=== PATIENT | male | born 2000 | race Two or more races ===

== ENCOUNTER 2020-05-11 04:33 | Emergency (ER) | payer MEDICAID, SELFPAY ==
[2020-05-11 04:42] VITALS: BP 119/70; PULSE 71; RESP 12; TEMP 36.8; O2SAT 99; BMI 23.7
[2020-05-11 04:49] VITALS: BP 119/70; PULSE 75; RESP 16; TEMP 36.8; O2SAT 99
--- NOTE | 2020-05-11 04:57 | ED_ITS ---
HPI - General Adult General Chief complaint: Dyspnea Stated complaint: SOB Time Seen by Provider: 05/11/20 04:54 Source: patient Mode of arrival: ambulatory History of Present Illness HPI narrative: 19-year-old male. Chief complaint of sore throat x2 days. Patient states difficult to swallow. Denies neck stiffness. Denies drooling. Also states tonight started with generalized abdominal cramping and mild headache. No fevers no chills. No cough at this point patient denies shortness of breath. Patient states has been around people who have been COVID positive and is having slight fatigue Onset (ago): day(s) Severity: moderate Pain Consistency: constant Related Data Home Medications Medication Instructions Recorded Confirmed No Known Home Meds 05/11/20 05/11/20 Allergies Allergy/AdvReac Type Severity Reaction Status Date / Time No Known Allergies Allergy Verified 05/11/20 04:41 [No Known Allergies*] Review of Systems Review of Systems: Constitutional : No Weight loss, No Fever, No Chills, No Night Sweats, positive Fatigue, No Malaise ENT/Mouth : No Hearing loss, No Ear Pain, No Nasal Congestion, No Sinus Pain, No Hoarseness, positive sore throat, No Rhinorrhea, No Swallowing Difficulty Eyes: No Eye Pain, No Swelling, No Redness, No Foreign Body, No Discharge, No Vision Changes Cardiovascular : No Chest Pain, No SOB, No Dyspnea on Exertion, No Orthopnea, No Edema, No Palpitations Respiratory : No Cough, No Sputum, No Wheezing, No Smoke Exposure, No Dyspnea Gastrointestinal : No Nausea, No Vomiting, No Diarrhea, No Constipation, positive abdominal Pain, No Hematochezia, No Melena Genitourinary : no irregular bleeding, No Dysuria, No Urinary Frequency, No Hematuria, No Urinary Incontinence, No Urgency, No Flank Pain, No Urinary Flow Changes, No Hesitancy Musculoskeletal : No joint pain, No Myalgias, No Joint Swelling Skin : No Skin Lesions, No rash Neuro : No Weakness, No Numbness, No Paresthesias, No Loss of Consciousness, No Dizziness, No Headache Psych : No Anxiety/Panic, No Depression, No SI/HI/AH/VH, No Social Issues, Heme/Lymph: No Bruising, No Bleeding,No Lymphadenopathy Endocrine : No Polyuria, No Polydipsia, No Temperature Intolerance [facility] Past Medical History Attestation statement: The following information was validated with the patient. Medical History No known health problems Family History Family History (Updated 05/11/20 @ 04:58 by Reynaldo Main DO) Other Family history non-contributory Social History Social History Alcohol intake: former Smoking Status: Current every day smoker Use of substances other than those prescribed or required for medical reasons: No Advance Directives: No Advance Directives Information Provided: No Physical Exam Vital Signs: Vital Signs: Last Vital Signs Temp 98.3 F 05/11/20 04:49 Pulse 75 05/11/20 04:49 Resp 16 05/11/20 04:49 BP 119/70 05/11/20 04:49 Pulse Ox 99 05/11/20 04:49 Body Mass Index 23.7 Vital signs reviewed 99% room air interpreted by ut pulse ox normal Appearance: Alert. Oriented X3. No acute distress. Eyes: Pupils equal, round and reactive to light. ENT: Pharynx erythematous. No discharge. No abscess. No trauma Neck: Normal inspection. Neck supple. No lymph nodes noted. No crepitus CVS: Normal heart rate and rhythm. Pulses normal. Normal S1 and S2 Respiratory: No respiratory distress. Breath sounds normal. No Wheezing. No rales Abdomen: Soft and nontender. No rigidity. No distention. good BS x4 Skin: Skin warm and dry. Normal skin color. Normal skin turgor. Extremities: No lower extremity edema. Neurovascular intact to all extremities. No Lacerations. No Rash Neuro: Oriented X 3. No motor deficit. No sensory deficit. Moving all extermities. No slurred speech. Course Course Course Narrative: Patient declines shortness of breath states having difficulty swelling with throat pain. Patient has been around COVID patient is however will test him and discussed with patient regarding self isolation Medical Decision Making MDM Narrative Medical decision making narrative: To 1-year-old male status post sore throat rapid strep negative generalized weakness normal labs. COVID test pending tolerating PO. No hypoxia no shortness of breath or cough. Discussed with patient will need self-isolation Differential Diagnosis Differential Diagnosis: Retropharyngeal abscess, strep throat, viral illness Lab Data Lab results reviewed: Yes I reviewed the patient's lab results. Result diagrams: 05/11/20 05:07 05/11/20 05:07 Labs: Lab Results 05/11/20 05/11/20 Range/Units 05:07 05:07 WBC 6.1 (4.8-10.8) X10*3/uL RBC 4.86 (4.60-5.80) X10*6/uL Hgb 15.6 (14.0-18.0) g/dl Hct 46.0 (42-52) % MCV 94.7 (80-98) fL MCH 32.1 (27.0-33.0) pg MCHC 33.9 (31.0-36.0) g/dl RDW 12.9 (11.0-16.0) % Plt Count 304 (160-400) X10*3/uL MPV 9.8 (9.4-12.4) fL Immature Gran % (Auto) 0.3 (0.0-0.4) % Neut % (Auto) 44.5 L (45-73) % Lymph % (Auto) 46.4 H (20-40) % Whitley % (Auto) 6.7 (2-11) % Eos % (Auto) 1.3 (0-4) % Baso % (Auto) 0.8 (0-2) % Lymph # (Auto) 2.8 (1.2-4.9) X10*3/uL Whitley # (Auto) 0.4 (0.1-1.2) X10*3/uL Eos # (Auto) 0.1 (0.0-0.4) X10*3/uL Baso # (Auto) 0.1 (0.0-0.2) X10*3/uL Abs Immat Gran (auto) 0.02 (0.00-0.03) X10*3/uL Absolute Neuts (auto) 2.7 (2.0-8.3) X10*3/uL Absolute Nucleated RBC 0.000 (0.0-0.012) X10*3/uL Nucleated RBC % (auto) 0.0 (0.0-0.2) /100WBC Sodium 141 (135-145) mmol/L Potassium 4.2 (3.3-5.1) mmol/l Chloride 104 (96-108) mmol/L Carbon Dioxide 25 (22-29) mmol/L Anion Gap 16 (12-20) BUN 7 L (9-16) mg/dL Creatinine 0.94 (0.5-1.4) mg/dL Estim Creat Clear Calc 140.4 Estimated GFR > 60 Random Glucose 89 (60-115) mg/dL Calcium 9.2 (8.4-10.2) mg/dL Total Bilirubin 0.2 (0.0-1.0) mg/dL Direct Bilirubin < 0.2 (0.0-0.5) mg/dL AST 23 (5-37) U/L ALT 22 (0-40) U/L Alkaline Phosphatase 84 (39-117) U/L Total Protein 7.5 (6.5-8.0) g/dL Albumin 4.7 (3.5-5.0) g/dL Lipase 50 (8-78) U/L Discharge Plan Discharge Clinical Impression: Myalgia, At increased risk of exposure to COVID-19 virus Pharyngitis Qualifiers: Pharyngitis/tonsillitis etiology: unspecified etiology Qualified Code(s): J02.9 - Acute pharyngitis, unspecified Patient Disposition: Home, Self-Care Instructions: Pharyngitis (ED) Additional Instructions: CDC Guidelines for home isolation: Follow these instructions until your Covid results return - Stay away from others - Limit contact with pets and animals: If you must care for a pet, wash your hands before and after interacting with them - Wear a mask if you are sick - Cover your mouth and nose with a tissue when you cough or sneeze. Dispose of tissues in a lined trash can and wash your hands immediately with soap and water for at least 20 seconds. If soap and water are not available, clean hands with alcohol-based hand piped buttonhole machine operator that contains at least 60% alcohol. - Clean your hands often with soap and water for at least 20 seconds - Avoid touching your eyes, nose and mouth with unwashed hands - Do not share dishes, drinking glasses, cups, eating utensils, towels, or bedding with other people in your home. After using these items, wash them thoroughly with soap and water or put in the human insights lead ads marketing. - Clean high-touch surfaces in your isolation area (?sick room? and bathroom) every day; let a caregiver clean and disinfect high-touch surfaces in other areas of the home. Clean the area or item with soap and water or another detergent if it is dirty. Then, use a household disinfectant. Seek medical attention, but call first: - Seek medical care right away if your illness is worsening (for example, if you have difficulty breathing). - Call your doctor before going in: Before going to the doctor?s office or emergency room, call ahead and tell them your symptoms. They will tell you what to do. - If possible, put on a facemask before you enter the building. If you can?t put on a facemask, try to keep a safe distance from other people (at least 6 feet away). This will help protect the people in the office or waiting room. - Follow care instructions from your healthcare provider and local health department: Your local health authorities will give instructions on checking your symptoms and reporting information. Emergency warning signs for COVID-19: - Difficulty breathing or shortness of breath - Persistent pain or pressure in the chest - New confusion or inability to arouse - Bluish lips or face Prescriptions: No Action No Known Home Meds RF: 0 Referrals: Elsa Ulloa MD [Primary Care Provider] - 2 days
[2020-05-11] MEDS: 0.9 % Sodium Chloride 1,000 ML 999 ML IVCONT (05:09)
[2020-05-11] MEDS: Ketorolac Tromethamine 30 MG/ML VIAL IVPUSH (05:13)
[2020-05-11 05:15] LABS: Basophils Absolute Auto 0.1 X10*3/uL (0.0-0.2); Basophils Percent Auto 0.8 % (0-2); Eosinophils Absolute Auto 0.1 X10*3/uL (0.0-0.4); Eosinophils Percent Auto 1.3 % (0-4); Hemoglobin 15.6 g/dl (14.0-18.0); Imm Gran Abs Auto 0.02 X10*3/uL (0.00-0.03); Imm Gran Pct Auto 0.3 % (0.0-0.4); Lymphocytes Absolute Auto 2.8 X10*3/uL (1.2-4.9); Lymphocytes Percent Auto 46.4 % (20-40); MANUAL DIFF FLAG NO; Mean Corpuscular HGB Conc 33.9 g/dl (31.0-36.0); Mean Corpuscular Hemoglobin 32.1 pg (27.0-33.0); Mean Corpuscular Volume 94.7 fL (80-98); Mean Platelet Volume 9.8 fL (9.4-12.4); Monocytes Absolute Auto 0.4 X10*3/uL (0.1-1.2); Monocytes Percent Auto 6.7 % (2-11); Neutrophils Absolute Auto 2.7 X10*3/uL (2.0-8.3); Neutrophils Percent Auto 44.5 % (45-73); Platelet Count 304 X10*3/uL (160-400); Red Blood Count 4.86 X10*6/uL (4.60-5.80); Red Cell Distribution Width 12.9 % (11.0-16.0); White Blood Count 6.1 X10*3/uL (4.8-10.8)
[2020-05-11 05:43] LABS: Alanine Aminotransferase 22 U/L (0-40); Albumin Level 4.7 g/dL (3.5-5.0); Alkaline Phosphatase 84 U/L (39-117); Anion Gap 16 (12-20); Aspartate Amino Transferase 23 U/L (5-37); Bilirubin Direct < 0.2 mg/dL (0.0-0.5); Bilirubin Total 0.2 mg/dL (0.0-1.0); Blood Urea Nitrogen 7 mg/dL (9-16); Calcium 9.2 mg/dL (8.4-10.2); Carbon Dioxide 25 mmol/L (22-29); Chloride 104 mmol/L (96-108); Creatinine Clr Calc Pharmacy 140.4; Estimated Glomerular Filt Rate > 60; Glucose Random 89 mg/dL (60-115); Lipase 50 U/L (8-78); Potassium 4.2 mmol/l (3.3-5.1); Sodium 141 mmol/L (135-145); Total Protein 7.5 g/dL (6.5-8.0)
[2020-05-11 06:00] VITALS: BP 115/68; PULSE 69; RESP 18; TEMP 36.7; O2SAT 97
== END 2020-05-11 07:03 | disposition home or self-care (01) ==
PROVIDERS: Emergency Provider Emergency Medicine; PCP Pediatrics
DX: J02.9 Acute pharyngitis, unspecified (principal); M79.10 Myalgia, unspecified site; R06.00 Dyspnea, unspecified; Z20.828 Contact with and (suspected) exposure to other viral communicable diseases; F17.200 Nicotine dependence, unspecified, uncomplicated; Z71.6 Tobacco abuse counseling; Z79.899 Other long term (current) drug therapy
CPT/HCPCS: 36415; 80048; 80076; 83690; 85025; 87071; 87147; 87880; 96361; 96374; 99284; J1885; U0003

== ENCOUNTER 2020-06-03 20:01 | Inpatient (IN) | payer OTHER, SELFPAY ==
[2020-06-03 20:02] VITALS: BP 152/89; PULSE 84; RESP 18; TEMP 37.2; O2SAT 97; BMI 23.0
--- NOTE | 2020-06-03 21:16 | PC.NURSE ---
PT TO ROOM #22, CHG INTO GOWN AND AWAITING MD'S EVAL. PT C/O NAUSEA, VOMITING, THROWING UP BLOOD AND ABD PAIN. PT ARRIVES ALERT, RESPIRATIONS EASY, N/L. SKIN W/D. PT AWAITING TO BE SEE BY MD. WILL CONTINUE TO MONITOR PT.
--- NOTE | 2020-06-03 21:19 | ED.GENADULT ---
HPI - General Adult General Chief complaint: General Medical Stated complaint: withdraws Time Seen by Provider: 06/03/20 23:15 Source: patient Mode of arrival: ambulatory Limitations: no limitations History of Present Illness HPI narrative: 19-year-old male with no significant past medical history presents with withdrawal symptoms from alcohol. States he has been drinking 2-3 pt of hard liquor every day for the past 2 years since his younger brother . He states that he has been unable to eat or drink, has been vomiting for the past 3 days, is sweating, tremors, and is asking for detox. Onset (ago): year(s) Severity: severe Pain Consistency: constant Relieving factors: none Associated symptoms: diaphoresis, loss of appetite, malaise and nausea/vomiting Related Data Home Medications Medication Instructions Recorded Confirmed No Known Home Meds 05/11/20 05/11/20 Allergies Allergy/AdvReac Type Severity Reaction Status Date / Time No Known Allergies Allergy Verified 05/11/20 04:41 [No Known Allergies*] Review of Systems Review of Systems: Constitutional: No Fever, No Chills, positive diaphoresis, positive tremors ENT/Mouth: No sore throat, No Rhinorrhea Eyes: No Eye Pain, No Swelling, No Redness Cardiovascular: No Chest Pain, No SOB Respiratory: No Cough, No Sputum Gastrointestinal: Positive Nausea, positive Vomiting, No Diarrhea, pulse abdominal Pain Genitourinary: No Dysuria, No Hematuria Musculoskeletal: No joint pain, No Myalgias, No Joint Swelling Skin: No Skin Lesions, No rash Neuro: No Weakness, No Numbness, No Loss of Consciousness, No Dizziness, No Headache Psych: Positive Anxiety, No Depression, No SI/HI/AH/VH Heme/Lymph: No Bruising, No Bleeding,No Lymphadenopathy Endocrine: No Polyuria, No Polydipsia Yes all other systems are reviewed and are negative [facility] Past Medical History Attestation statement: The following information was validated with the patient. Medical History No known health problems Family History Family History Other Family history non-contributory Social History Social History Alcohol intake: former Smoking Status: Current every day smoker Advance Directives: No Advance Directives Information Provided: No Physical Exam Vital Signs: Vital Signs: Last Vital Signs Temp 99.0 F 06/03/20 20:02 Pulse 68 06/04/20 00:00 Resp 18 06/04/20 00:00 BP 145/81 H 06/04/20 00:00 Pulse Ox 99 06/04/20 00:00 Body Mass Index 23.0 Appearance: Alert. Oriented X3. Moderate distress. Tachycardic, tremors, diaphoretic, hypertensive Eyes: Pupils equal, round and reactive to light. ENT: Pharynx normal. Neck: Normal inspection. Neck supple. CVS: Normal heart rate and rhythm. Pulses normal. Respiratory: No respiratory distress. Breath sounds normal. Abdomen: Soft and diffusely tender without rebound, guarding, negative psoas, obturator, Villar's and McBurney's Skin: Skin warm and moderate diaphoresis,. Normal skin color. Normal skin turgor. Extremities: No lower extremity edema. Neuro: No motor deficit. No sensory deficit. Course Course Course Narrative: 19-year-old male with significant EtOH history presents in acute alcohol withdrawal. He states to drink 2-3 pt of hard liquor per day for the past 2 years since his brother . He also reports cocaine and marijuana abuse. He has abdominal pain, nausea, vomiting, is tremors, diaphoretic, hypertensive and tachycardic. Plan of care is to start with phenobarbital protocol, resuscitate with fluids with a banana bag, CBC, Chem 7, and liver enzymes. Magnesium is 1.5, we will resuscitate. Discussion with hospitalist regarding plan of care, we will up admit for acute alcohol withdrawal. Consultations Consultation #1: Anuj Villarreal Time: 11:45 Medical Decision Making Differential Diagnosis Differential Diagnosis: ETOH withdrawal Medical Records Medical records reviewed: Yes I reviewed the patient's medical records. Lab Data Lab results reviewed: Yes I reviewed the patient's lab results. Result diagrams: 06/03/20 21:40 06/03/20 21:40 Labs: Lab Results 06/03/20 06/03/20 06/03/20 Range/Units 21:40 21:40 21:40 WBC 6.9 (4.8-10.8) X10*3/uL RBC 4.83 (4.60-5.80) X10*6/uL Hgb 15.7 (14.0-18.0) g/dl Hct 45.6 (42-52) % MCV 94.4 (80-98) fL MCH 32.5 (27.0-33.0) pg MCHC 34.4 (31.0-36.0) g/dl RDW 13.2 (11.0-16.0) % Plt Count 238 (160-400) X10*3/uL MPV 10.4 (9.4-12.4) fL Immature Gran % (Auto) 0.1 (0.0-0.4) % Neut % (Auto) 67.1 (45-73) % Lymph % (Auto) 22.7 (20-40) % [place] % (Auto) 9.3 (2-11) % Eos % (Auto) 0.1 (0-4) % Baso % (Auto) 0.7 (0-2) % Lymph # (Auto) 1.6 (1.2-4.9) X10*3/uL [place] # (Auto) 0.6 (0.1-1.2) X10*3/uL Eos # (Auto) 0.0 (0.0-0.4) X10*3/uL Baso # (Auto) 0.1 (0.0-0.2) X10*3/uL Abs Immat Gran (auto) 0.01 (0.00-0.03) X10*3/uL Absolute Neuts (auto) 4.6 (2.0-8.3) X10*3/uL Absolute Nucleated RBC 0.000 (0.0-0.012) X10*3/uL Nucleated RBC % (auto) 0.0 (0.0-0.2) /100WBC PT 13.0 (10.8-13.0) SEC INR 1.1 (0.9-1.1) APTT 32.7 (24.1-38.0) SEC Sodium 141 (135-145) mmol/L Potassium 3.6 (3.3-5.1) mmol/l Chloride 97 (96-108) mmol/L Carbon Dioxide 32 H (22-29) mmol/L Anion Gap 16 (12-20) BUN 7 L (9-16) mg/dL Creatinine 0.96 (0.5-1.4) mg/dL Estim Creat Clear Calc 132.7 Estimated GFR > 60 POC Glucose (60-115) mg/dL Random Glucose 90 (60-115) mg/dL Calcium 9.8 D (8.4-10.2) mg/dL Magnesium 1.5 L (1.6-2.6) mg/dL Total Bilirubin 0.8 (0.0-1.0) mg/dL Direct Bilirubin 0.4 (0.0-0.5) mg/dL AST 36 D (5-37) U/L ALT 31 (0-40) U/L Alkaline Phosphatase 95 (39-117) U/L Ammonia Total Protein 7.7 (6.5-8.0) g/dL Albumin 4.7 (3.5-5.0) g/dL Lipase 24 (8-78) U/L Urine Color Urine Appearance Urine pH (5.0-8.0) Ur Specific Heaters (1.005-1.025) Urine Protein (NEG-TRACE) MG/DL Urine Glucose (UA) (NEG) MG/DL Urine Ketones (NEG) MG/DL Urine Blood (NEG) Urine Nitrite (NEG) Ur Leukocyte Esterase (NEG) Urine Opiates Screen (Not Detect) Ur Barbiturates Screen (Not Detect) Ur Phencyclidine Scrn (Not Detect) Ur Amphetamines Screen (Not Detect) U Benzodiazepines Scrn (Not Detect) Urine Cocaine Screen (Not Detect) U Marijuana (THC) Screen (Not Detect) Ethyl Alcohol mg/dL 06/03/20 06/03/20 06/03/20 Range/Units 21:40 21:40 22:12 WBC (4.8-10.8) X10*3/uL RBC (4.60-5.80) X10*6/uL Hgb (14.0-18.0) g/dl Hct (42-52) % MCV (80-98) fL MCH (27.0-33.0) pg MCHC (31.0-36.0) g/dl RDW (11.0-16.0) % Plt Count (160-400) X10*3/uL MPV (9.4-12.4) fL Immature Gran % (Auto) (0.0-0.4) % Neut % (Auto) (45-73) % Lymph % (Auto) (20-40) % [place] % (Auto) (2-11) % Eos % (Auto) (0-4) % Baso % (Auto) (0-2) % Lymph # (Auto) (1.2-4.9) X10*3/uL [place] # (Auto) (0.1-1.2) X10*3/uL Eos # (Auto) (0.0-0.4) X10*3/uL Baso # (Auto) (0.0-0.2) X10*3/uL Abs Immat Gran (auto) (0.00-0.03) X10*3/uL Absolute Neuts (auto) (2.0-8.3) X10*3/uL Absolute Nucleated RBC (0.0-0.012) X10*3/uL Nucleated RBC % (auto) (0.0-0.2) /100WBC PT (10.8-13.0) SEC INR (0.9-1.1) APTT (24.1-38.0) SEC Sodium (135-145) mmol/L Potassium (3.3-5.1) mmol/l Chloride (96-108) mmol/L Carbon Dioxide (22-29) mmol/L Anion Gap (12-20) BUN (9-16) mg/dL Creatinine (0.5-1.4) mg/dL Estim Creat Clear Calc Estimated GFR POC Glucose (60-115) mg/dL Random Glucose (60-115) mg/dL Calcium (8.4-10.2) mg/dL Magnesium (1.6-2.6) mg/dL Total Bilirubin (0.0-1.0) mg/dL Direct Bilirubin (0.0-0.5) mg/dL AST (5-37) U/L ALT (0-40) U/L Alkaline Phosphatase (39-117) U/L Ammonia Cancelled 26 Total Protein (6.5-8.0) g/dL Albumin (3.5-5.0) g/dL Lipase (8-78) U/L Urine Color Urine Appearance Urine pH (5.0-8.0) Ur Specific [place] (1.005-1.025) Urine Protein (NEG-TRACE) MG/DL Urine Glucose (UA) (NEG) MG/DL Urine Ketones (NEG) MG/DL Urine Blood (NEG) Urine Nitrite (NEG) Ur Leukocyte Esterase (NEG) Urine Opiates Screen (Not Detect) Ur Barbiturates Screen (Not Detect) Ur Phencyclidine Scrn (Not Detect) Ur Amphetamines Screen (Not Detect) U Benzodiazepines Scrn (Not Detect) Urine Cocaine Screen (Not Detect) U Marijuana (THC) Screen (Not Detect) Ethyl Alcohol < 10 mg/dL 06/04/20 06/04/20 06/04/20 Range/Units 00:20 00:26 00:26 WBC (4.8-10.8) X10*3/uL RBC (4.60-5.80) X10*6/uL Hgb (14.0-18.0) g/dl Hct (42-52) % MCV (80-98) fL MCH (27.0-33.0) pg MCHC (31.0-36.0) g/dl RDW (11.0-16.0) % Plt Count (160-400) X10*3/uL MPV (9.4-12.4) fL Immature Gran % (Auto) (0.0-0.4) % Neut % (Auto) (45-73) % Lymph % (Auto) (20-40) % [place] % (Auto) (2-11) % Eos % (Auto) (0-4) % Baso % (Auto) (0-2) % Lymph # (Auto) (1.2-4.9) X10*3/uL [place] # (Auto) (0.1-1.2) X10*3/uL Eos # (Auto) (0.0-0.4) X10*3/uL Baso # (Auto) (0.0-0.2) X10*3/uL Abs Immat Gran (auto) (0.00-0.03) X10*3/uL Absolute Neuts (auto) (2.0-8.3) X10*3/uL Absolute Nucleated RBC (0.0-0.012) X10*3/uL Nucleated RBC % (auto) (0.0-0.2) /100WBC PT (10.8-13.0) SEC INR (0.9-1.1) APTT (24.1-38.0) SEC Sodium (135-145) mmol/L Potassium (3.3-5.1) mmol/l Chloride (96-108) mmol/L Carbon Dioxide (22-29) mmol/L Anion Gap (12-20) BUN (9-16) mg/dL Creatinine (0.5-1.4) mg/dL Estim Creat Clear Calc Estimated GFR POC Glucose 100 (60-115) mg/dL Random Glucose (60-115) mg/dL Calcium (8.4-10.2) mg/dL Magnesium (1.6-2.6) mg/dL Total Bilirubin (0.0-1.0) mg/dL Direct Bilirubin (0.0-0.5) mg/dL AST (5-37) U/L ALT (0-40) U/L Alkaline Phosphatase (39-117) U/L Ammonia Total Protein (6.5-8.0) g/dL Albumin (3.5-5.0) g/dL Lipase (8-78) U/L Urine Color YELLOW Urine Appearance CLEAR Urine pH 7.5 (5.0-8.0) Ur Specific [place] 1.010 (1.005-1.025) Urine Protein TRACE (NEG-TRACE) MG/DL Urine Glucose (UA) NEG (NEG) MG/DL Urine Ketones 15 (NEG) MG/DL Urine Blood NEG (NEG) Urine Nitrite NEG (NEG) Ur Leukocyte Esterase NEG (NEG) Urine Opiates Screen Not Detected (Not Detect) Ur Barbiturates Screen Not Detected (Not Detect) Ur Phencyclidine Scrn Not Detected (Not Detect) Ur Amphetamines Screen Not Detected (Not Detect) U Benzodiazepines Scrn Not Detected (Not Detect) Urine Cocaine Screen POSITIVE H (Not Detect) U Marijuana (THC) Screen POSITIVE H (Not Detect) Ethyl Alcohol mg/dL ECG Data Attestation: I personally reviewed and interpreted this ECG as follows: Interpretation: Vent. Rate : 087 BPM Atrial Rate : 087 BPM P-R Int : 148 ms QRS Dur : 086 ms QT Int : 388 ms P-R-T Axes : 066 062 046 degrees QTc Int : 466 ms Normal sinus rhythm with sinus arrhythmia Normal ECG When compared with ECG of 09-MAR-2020 12:20, Vent. rate has increased BY 29 BPM QT has lengthened Date 06/03/2020, time 9:47 p.m. Critical Care Time Critical Care Time Critical Care Time: Yes Total Critical Care Time: 60 Attestation: I have personally provided critical care time exclusive of time spent on separately billable procedures. Time includes review of laboratory data, radiology results, discussion with consultants, and monitoring for potential decompensation. Interventions were performed as documented. Discharge Plan Discharge Clinical Impression: Alcohol withdrawal Patient Disposition: Admitted As Inpatient
--- NOTE | 2020-06-03 21:20 | ECG_ITS ---
Test Reason : WITHDRAWAL Blood Pressure : / mmHG Vent. Rate : 087 BPM Atrial Rate : 087 BPM P-R Int : 148 ms QRS Dur : 086 ms QT Int : 388 ms P-R-T Axes : 066 062 046 degrees QTc Int : 466 ms Normal sinus rhythm with sinus arrhythmia Normal ECG When compared with ECG of 09-MAR-2020 12:20, Vent. rate has increased BY 29 BPM QT has lengthened Referred By: Vilma Verma Electronically Signed By:Alex Ferreira
[2020-06-03 21:48] LABS: Basophils Absolute Auto 0.1 X10*3/uL (0.0-0.2); Basophils Percent Auto 0.7 % (0-2); Eosinophils Percent Auto 0.1 % (0-4); Hematocrit 45.6 % (42-52); Hemoglobin 15.7 g/dl (14.0-18.0); Imm Gran Abs Auto 0.01 X10*3/uL (0.00-0.03); Imm Gran Pct Auto 0.1 % (0.0-0.4); Lymphocytes Absolute Auto 1.6 X10*3/uL (1.2-4.9); Lymphocytes Percent Auto 22.7 % (20-40); Mean Corpuscular HGB Conc 34.4 g/dl (31.0-36.0); Mean Corpuscular Hemoglobin 32.5 pg (27.0-33.0); Mean Corpuscular Volume 94.4 fL (80-98); Mean Platelet Volume 10.4 fL (9.4-12.4); Monocytes Absolute Auto 0.6 X10*3/uL (0.1-1.2); Monocytes Percent Auto 9.3 % (2-11); Neutrophils Absolute Auto 4.6 X10*3/uL (2.0-8.3); Neutrophils Percent Auto 67.1 % (45-73); Platelet Count 238 X10*3/uL (160-400); Red Blood Count 4.83 X10*6/uL (4.60-5.80); Red Cell Distribution Width 13.2 % (11.0-16.0); White Blood Count 6.9 X10*3/uL (4.8-10.8)
[2020-06-03 21:50] LABS: MANUAL DIFF FLAG NO
[2020-06-03 22:00] VITALS: BP 148/82; PULSE 66; RESP 18; O2SAT 99
[2020-06-03 22:02] LABS: INTERNATIONAL NORM RATIO 1.1 (0.9-1.1)
[2020-06-03 22:04] LABS: Partial Thromboplastin Time 32.7 SEC (24.1-38.0)
[2020-06-03 22:08] LABS: Ethanol < 10 mg/dL
[2020-06-03] MEDS: PHENobarbitaL sodium 130 MG/ML VIAL 248 MG IM (22:09)
[2020-06-03 22:12] LABS: Alanine Aminotransferase 31 U/L (0-40); Albumin Level 4.7 g/dL (3.5-5.0); Alkaline Phosphatase 95 U/L (39-117); Anion Gap 16 (12-20); Aspartate Amino Transferase 36 U/L (5-37); Bilirubin Direct 0.4 mg/dL (0.0-0.5); Bilirubin Total 0.8 mg/dL (0.0-1.0); Blood Urea Nitrogen 7 mg/dL (9-16); Calcium 9.8 mg/dL (8.4-10.2); Carbon Dioxide 32 mmol/L (22-29); Chloride 97 mmol/L (96-108); Creatinine Clr Calc Pharmacy 132.7; Estimated Glomerular Filt Rate > 60; Glucose Random 90 mg/dL (60-115); Lipase 24 U/L (8-78); Magnesium 1.5 mg/dL (1.6-2.6); Potassium 3.6 mmol/l (3.3-5.1); Sodium 141 mmol/L (135-145); Total Protein 7.7 g/dL (6.5-8.0)
[2020-06-03 22:38] LABS: Ammonia 26 umol/L (13-55)
[2020-06-03] MEDS: Magnesium Sulfate/H2O 2 GM/50 ML PIGGYBACK IV (23:11)
[2020-06-04] VITALS: BP 145/81; PULSE 68; RESP 18; O2SAT 99
[2020-06-04 00:24] LABS: Glucose, Whole Blood 100 mg/dL (60-115)
[2020-06-04] MEDS: Magnesium Hydrox/Alum Hydrox 30 ML ORAL.SUSP PO (00:41)
[2020-06-04 00:42] LABS: Glucose Urine UA NEG (NEG); Leukocyte Esterase Urine NEG (NEG); Nitrite Urine NEG (NEG); PH 7.5 (5.0-8.0); Urine Blood NEG (NEG); Urine Ketones 15 MG/DL (NEG); Urine Protein TRACE MG/DL (NEG-TRACE)
[2020-06-04 00:50] LABS: Appearance Urine CLEAR; Color Urine YELLOW
[2020-06-04 01:05] LABS: Amphetamine Screen Urine Not Detected (Not Detect); Barbiturates, Urine Not Detected (Not Detect); Benzodiazepines Screen Urine Not Detected (Not Detect); Cannabinoid Screen Urine POSITIVE (Not Detect); Cocaine Screen Urine POSITIVE (Not Detect); Opiate Screen Urine Not Detected (Not Detect); Phencyclidine Screen Urine Not Detected (Not Detect)
[2020-06-04 01:38] LABS: COVID-19 Test Negative (Negative)
[2020-06-04 02:00] VITALS: BP 148/86; PULSE 72; RESP 16; O2SAT 98
[2020-06-04] MEDS: PHENobarbitaL sodium 130 MG/ML VIAL 186 MG IM ×2 (02:02→04:55)
--- NOTE | 2020-06-04 02:12 | PC.NURSE ---
Pt resting in bed, denies pain but report nausea, requesting PO, states his mouth is dry. Pt medicated per MAR, VSS. Pt provided with icechips. Call moses within reach, continue to monitor.
--- NOTE | 2020-06-04 02:37 | PC.NURSE ---
Med Rec complete, per pt, he does not take any medications at home.
--- NOTE | 2020-06-04 03:24 | PM.IMHP ---
History of Present Illness Date of Service: 06/04/20 Chief Complaint: Alcohol intoxication 19 y/o male with PMHX of Alcohol abuse who presented from home due to alcohol intoxication. Per history provided by the patient, for the past 2 years has been drinking excessively, after patient lost her brother and since has been drinking in large quantities. Last alcoholic abuse patient reports that was a combination of beer/hard liquor. Las alcoholic drink was yesterday per patient. Reports generalized weakness, poor appetite, reggie any fever, chest pain or SOB. On presentation patient was noted to be hemodynamically stable, no evidence of fever on admission, no leukocytosis or any evidence of fever. Covid test negative. Patient was given IV magnesium and IV phenobarbital per protocol. Decision for admission given. PMHX; Alcohol abuse, asthma PSx: none Toxic habits: Alcohol abuse, no hx of smoking or IVDA Review of Systems Constitutional: Constitutional: Denies as per [facility] Medical History No known health problems Functional capacity: independent ambulation Family History Other Family history non-contributory Social History Alcohol intake: former Smoking Status: Current every day smoker Advance Directives: No Advance Directives Information Provided: No Meds Allergies Allergy/AdvReac Type Severity Reaction Status Date / Time No Known Allergies Allergy Verified 05/11/20 04:41 [No Known Allergies*] Home Medications Medication Instructions Recorded Confirmed Type No Known Home Meds 05/11/20 05/11/20 History Physical Exam Vital Signs and Narrative: Vital Signs: Last Vital Signs Temp 99.0 F 06/03/20 20:02 Pulse 72 06/04/20 02:00 Resp 16 06/04/20 02:00 BP 148/86 H 06/04/20 02:00 Pulse Ox 98 06/04/20 02:00 Body Mass Index 23.0 Const: General: cooperative, comfortable and no acute distress Orientation/consciousness: oriented to person HENMT: Head: Yes normal to inspection Eyes: General: appearance normal, both eyes and all related structures Neck: Yes normal visual inspection Chest: Chest palpation & inspection: normal inspection of the chest Resp: Effort & Inspection: normal respiratory effort Auscultation: clear to auscultation bilaterally : General: Yes Bimanual renal exam normal bilaterally and Yes no CVA tenderness Penis: normal penis Back/Spine/Pelvis: Back: no CVA tenderness Skin: General skin exam: no rashes or lesions noted Neuro: General: oriented to person Cognition (Neuro): normal cognition Extrem: General: Yes normal to inspection Results Labs CBC and Chem 7: 06/03/20 21:40 06/03/20 21:40 Labs: Laboratory Results - last 24 hr 06/03/20 06/03/20 06/03/20 21:40 21:40 21:40 MCV 94.4 MCH 32.5 MCHC 34.4 RDW 13.2 Plt Count 238 MPV 10.4 Immature Gran % (Auto) 0.1 Neut % (Auto) 67.1 Lymph % (Auto) 22.7 [place] % (Auto) 9.3 Eos % (Auto) 0.1 Baso % (Auto) 0.7 Lymph # (Auto) 1.6 [place] # (Auto) 0.6 Eos # (Auto) 0.0 Baso # (Auto) 0.1 Abs Immat Gran (auto) 0.01 Absolute Neuts (auto) 4.6 Absolute Nucleated RBC 0.000 Nucleated RBC % (auto) 0.0 PT 13.0 INR 1.1 APTT 32.7 Anion Gap 16 Estim Creat Clear Calc 132.7 Estimated GFR > 60 POC Glucose Random Glucose 90 Calcium 9.8 D Magnesium 1.5 L Total Bilirubin 0.8 Direct Bilirubin 0.4 AST 36 D ALT 31 Alkaline Phosphatase 95 Ammonia Total Protein 7.7 Albumin 4.7 Lipase 24 Urine Color Urine Appearance Urine pH Ur Specific [place] Urine Protein Urine Glucose (UA) Urine Ketones Urine Blood Urine Nitrite Ur Leukocyte Esterase Urine Opiates Screen Ur Barbiturates Screen Ur Phencyclidine Scrn Ur Amphetamines Screen U Benzodiazepines Scrn Urine Cocaine Screen U Marijuana (THC) Screen Ethyl Alcohol COVID-19 (CONCHA) COVID-19 Clin Com 06/03/20 06/03/20 06/03/20 21:40 21:40 22:12 MCV MCH MCHC RDW Plt Count MPV Immature Gran % (Auto) Neut % (Auto) Lymph % (Auto) [place] % (Auto) Eos % (Auto) Baso % (Auto) Lymph # (Auto) [place] # (Auto) Eos # (Auto) Baso # (Auto) Abs Immat Gran (auto) Absolute Neuts (auto) Absolute Nucleated RBC Nucleated RBC % (auto) PT INR APTT Anion Gap Estim Creat Clear Calc Estimated GFR POC Glucose Random Glucose Calcium Magnesium Total Bilirubin Direct Bilirubin AST ALT Alkaline Phosphatase Ammonia Cancelled 26 Total Protein Albumin Lipase Urine Color Urine Appearance Urine pH Ur Specific [place] Urine Protein Urine Glucose (UA) Urine Ketones Urine Blood Urine Nitrite Ur Leukocyte Esterase Urine Opiates Screen Ur Barbiturates Screen Ur Phencyclidine Scrn Ur Amphetamines Screen U Benzodiazepines Scrn Urine Cocaine Screen U Marijuana (THC) Screen Ethyl Alcohol < 10 COVID-19 (CONCHA) COVID-19 [employer] 06/04/20 06/04/20 06/04/20 00:20 00:26 00:26 MCV MCH MCHC RDW Plt Count MPV Immature Gran % (Auto) Neut % (Auto) Lymph % (Auto) [place] % (Auto) Eos % (Auto) Baso % (Auto) Lymph # (Auto) [place] # (Auto) Eos # (Auto) Baso # (Auto) Abs Immat Gran (auto) Absolute Neuts (auto) Absolute Nucleated RBC Nucleated RBC % (auto) PT INR APTT Anion Gap Estim Creat Clear Calc Estimated GFR POC Glucose 100 Random Glucose Calcium Magnesium Total Bilirubin Direct Bilirubin AST ALT Alkaline Phosphatase Ammonia Total Protein Albumin Lipase Urine Color YELLOW Urine Appearance CLEAR Urine pH 7.5 Ur Specific [place] 1.010 Urine Protein TRACE Urine Glucose (UA) NEG Urine Ketones 15 Urine Blood NEG Urine Nitrite NEG Ur Leukocyte Esterase NEG Urine Opiates Screen Not Detected Ur Barbiturates Screen Not Detected Ur Phencyclidine Scrn Not Detected Ur Amphetamines Screen Not Detected U Benzodiazepines Scrn Not Detected Urine Cocaine Screen POSITIVE H U Marijuana (THC) Screen POSITIVE H Ethyl Alcohol COVID-19 (CONCHA) COVID-19 [employer] Com 06/04/20 00:26 MCV MCH MCHC RDW Plt Count MPV Immature Gran % (Auto) Neut % (Auto) Lymph % (Auto) [place] % (Auto) Eos % (Auto) Baso % (Auto) Lymph # (Auto) [place] # (Auto) Eos # (Auto) Baso # (Auto) Abs Immat Gran (auto) Absolute Neuts (auto) Absolute Nucleated RBC Nucleated RBC % (auto) PT INR APTT Anion Gap Estim Creat Clear Calc Estimated GFR POC Glucose Random Glucose Calcium Magnesium Total Bilirubin Direct Bilirubin AST ALT Alkaline Phosphatase Ammonia Total Protein Albumin Lipase Urine Color Urine Appearance Urine pH Ur Specific [place] Urine Protein Urine Glucose (UA) Urine Ketones Urine Blood Urine Nitrite Ur Leukocyte Esterase Urine Opiates Screen Ur Barbiturates Screen Ur Phencyclidine Scrn Ur Amphetamines Screen U Benzodiazepines Scrn Urine Cocaine Screen U Marijuana (THC) Screen Ethyl Alcohol COVID-19 (CONCHA) Negative COVID-19 Clin Com See Note Assessment and Plan (1) Alcohol withdrawal: Status: Acute Continue with Phenobarbital protocol and titrate off as tolerated Continue with O2 therapy as needed Detox in the am
--- NOTE | 2020-06-04 04:07 | PC.NURSE ---
Report given to M/S RN. Pt being prepared for transport to floor.
[2020-06-04 04:28] VITALS: BP 141/74; PULSE 68; RESP 16; O2SAT 98
[2020-06-04] MEDS: Heparin Sodium,Porcine 5,000 UNIT/ML VIAL 5000 UNIT SUBCUT ×3 (04:54→20:16)
[2020-06-04 06:30] LABS: MANUAL DIFF FLAG NO
[2020-06-04 06:55] LABS: Basophils Absolute Auto 0.1 X10*3/uL (0.0-0.2); Basophils Percent Auto 0.8 % (0-2); Eosinophils Absolute Auto 0.1 X10*3/uL (0.0-0.4); Eosinophils Percent Auto 1.1 % (0-4); Hematocrit 42.9 % (42-52); Hemoglobin 14.7 g/dl (14.0-18.0); Imm Gran Abs Auto 0.03 X10*3/uL (0.00-0.03); Imm Gran Pct Auto 0.5 % (0.0-0.4); Lymphocytes Absolute Auto 2.4 X10*3/uL (1.2-4.9); Lymphocytes Percent Auto 38.3 % (20-40); Mean Corpuscular HGB Conc 34.3 g/dl (31.0-36.0); Mean Corpuscular Hemoglobin 32.6 pg (27.0-33.0); Mean Corpuscular Volume 95.1 fL (80-98); Mean Platelet Volume 10.6 fL (9.4-12.4); Monocytes Absolute Auto 0.8 X10*3/uL (0.1-1.2); Monocytes Percent Auto 12.2 % (2-11); Neutrophils Absolute Auto 2.9 X10*3/uL (2.0-8.3); Neutrophils Percent Auto 47.1 % (45-73); Platelet Count 212 X10*3/uL (160-400); Red Blood Count 4.51 X10*6/uL (4.60-5.80); Red Cell Distribution Width 13.2 % (11.0-16.0); White Blood Count 6.1 X10*3/uL (4.8-10.8)
[2020-06-04 07:11] LABS: Anion Gap 11 (12-20); Blood Urea Nitrogen 9 mg/dL (9-16); Calcium 9.2 mg/dL (8.4-10.2); Carbon Dioxide 31 mmol/L (22-29); Chloride 98 mmol/L (96-108); Estimated Glomerular Filt Rate > 60; Glucose Random 105 mg/dL (60-115); Potassium 3.4 mmol/l (3.3-5.1); Sodium 137 mmol/L (135-145)
[2020-06-04 07:39] VITALS: BP 132/76; PULSE 61; RESP 18; TEMP 36.5; O2SAT 99
[2020-06-04] MEDS: 0.9 % Sodium Chloride Flush 3 ML SYRINGE IVFLUSH ×3 (07:48→20:20)
[2020-06-04] MEDS: PHENobarbitaL 30 MG TABLET 60 MG PO ×2 (09:26→20:17)
--- NOTE | 2020-06-04 10:37 | MHC.CM.PN ---
PATIENT IS INDEPENDENT WITH ADLS NO DME OR VNA SERVICES. PLAN IS HOME - SELF CARE ONCE MEDICALLY STABLE. CASE MANAGEMENT CARD LEFT WITH PATIENT IN THE EVENT HE WOULD LIKE TO COMPLETE A HCP DOCUMENTATION OR HAS ANY DISCHARGE NEEDS.
[2020-06-04 11:26] VITALS: BP 145/78; PULSE 88; RESP 20; TEMP 36.4; O2SAT 100
--- NOTE | 2020-06-04 11:43 | HO.PM.IMPN ---
Subjective Subjective Date of Service: 06/04/20 Interval History: Patient seen and examined at bedside patient was reporting feeling shaky Constitutional Constitutional: Denies as per HPI Physical Exam Vital Signs: Vital Signs: Last Vital Signs Temp 97.5 F 06/04/20 11:26 Pulse 88 06/04/20 11:26 Resp 20 06/04/20 11:26 BP 145/78 H 06/04/20 11:26 Pulse Ox 100 06/04/20 11:26 Body Mass Index 23.0 Const: General: cooperative, comfortable and no acute distress Orientation/consciousness: oriented to person HENMT: Head: Yes normal to inspection Eyes: General: appearance normal, both eyes and all related structures Neck: Neck: Yes normal visual inspection Chest: Chest palpation & inspection: normal inspection of the chest Resp: Effort & Inspection: normal respiratory effort Auscultation: clear to auscultation bilaterally : General: Yes Bimanual renal exam normal bilaterally and Yes no CVA tenderness Penis: normal penis Back/Spine/Pelvis: Back: no CVA tenderness Skin: General skin exam: no rashes or lesions noted Neuro: General: oriented to person Cognition (Neuro): normal cognition Extrem: General: Yes normal to inspection Objective Data Current Medications Generic Name Dose Route Start Last Admin Trade Name Freq PRN Reason Stop Dose Admin Heparin Sodium (Porcine) 5,000 unit 06/04/20 04:00 06/04/20 04:54 Heparin Sodium,Porcine 5,000 Unit/Ml Vial SUBCUT 5,000 unit Q8H BALDOMERO Administration Medication 1 each 06/04/20 09:00 No Benzodiazepines MISCELLANE DAILY BALDOMERO Phenobarbital 60 mg 06/04/20 09:00 06/04/20 09:26 Phenobarbital 30 Mg Tablet PO 06/05/20 21:01 60 mg BID BALDOMERO Administration Phenobarbital 30 mg 06/06/20 09:00 Phenobarbital 30 Mg Tablet PO 06/07/20 21:01 BID BALDOMERO Phenobarbital 15 mg 06/08/20 09:00 Phenobarbital 15 Mg Tablet PO 06/09/20 09:01 DAILY BALDOMERO Sodium Chloride 3 ml 06/04/20 08:00 06/04/20 07:48 0.9 % Sodium Chloride Flush 3 Ml Syringe IVFLUSH 3 ml QSHIFT BALDOMERO Administration Labs CBC & Chem 7: 06/04/20 06:14 12/19/20 06:14 Assessment and Plan (1) Alcohol withdrawal: Status: Acute Assessment and Plan: Alcohol withdrawal Continue with Phenobarbital protocol and CIWA protocol Monitor electrolytes Continue thiamine and folic acid care team consult Drug abuse U tox positive for marijuana and cocaine monitor for withdrawals care team consult DVT prophylaxis heparin subcu
[2020-06-04 15:30] VITALS: BP 125/71; PULSE 72; RESP 18; TEMP 36.6; O2SAT 98
--- NOTE | 2020-06-04 16:47 | MHC.CARE ---
CARE team checked in with [facility] [id number] on patient's progress. Exact discharge date is not know at this time as it will depend on patient's progress. Patient is being treated for alcohol withdrawal and will be here overnight. CARE team made plan to check in with patient closer to discharge to determine need for any supports or referrals. Plan for CARE team to check in with [facility] [place] [id number] staff tomorrow about patient's readiness to meet.
[2020-06-05] VITALS: BP 148/77; PULSE 72; RESP 16; TEMP 36.9; O2SAT 99
[2020-06-05] MEDS: Heparin Sodium,Porcine 5,000 UNIT/ML VIAL 5000 UNIT SUBCUT (05:10)
[2020-06-05 07:43] VITALS: BP 124/55; PULSE 67; RESP 17; TEMP 36.4; O2SAT 100
[2020-06-05] MEDS: PHENobarbitaL 30 MG TABLET 60 MG PO (08:05)
[2020-06-05] MEDS: 0.9 % Sodium Chloride Flush 3 ML SYRINGE IVFLUSH (08:06)
[2020-06-05 08:37] LABS: Basophils Percent Auto 0.8 % (0-2); Eosinophils Absolute Auto 0.1 X10*3/uL (0.0-0.4); Eosinophils Percent Auto 2.1 % (0-4); Hematocrit 45.2 % (42-52); Hemoglobin 15.1 g/dl (14.0-18.0); Imm Gran Abs Auto 0.01 X10*3/uL (0.00-0.03); Imm Gran Pct Auto 0.2 % (0.0-0.4); Lymphocytes Absolute Auto 2.7 X10*3/uL (1.2-4.9); Mean Corpuscular HGB Conc 33.4 g/dl (31.0-36.0); Mean Corpuscular Hemoglobin 31.9 pg (27.0-33.0); Mean Corpuscular Volume 95.4 fL (80-98); Mean Platelet Volume 10.4 fL (9.4-12.4); Monocytes Absolute Auto 0.5 X10*3/uL (0.1-1.2); Monocytes Percent Auto 10.1 % (2-11); Neutrophils Absolute Auto 1.9 X10*3/uL (2.0-8.3); Neutrophils Percent Auto 35.8 % (45-73); Platelet Count 220 X10*3/uL (160-400); Red Blood Count 4.74 X10*6/uL (4.60-5.80); Red Cell Distribution Width 13.1 % (11.0-16.0); White Blood Count 5.3 X10*3/uL (4.8-10.8)
[2020-06-05 08:38] LABS: MANUAL DIFF FLAG NO
[2020-06-05 09:20] LABS: Anion Gap 13 (12-20); Blood Urea Nitrogen 10 mg/dL (9-16); Calcium 9.1 mg/dL (8.4-10.2); Carbon Dioxide 30 mmol/L (22-29); Chloride 98 mmol/L (96-108); Creatinine Clr Calc Pharmacy 123.7; Estimated Glomerular Filt Rate > 60; Glucose Random 108 mg/dL (60-115); Magnesium 2.1 mg/dL (1.6-2.6); Potassium 3.5 mmol/l (3.3-5.1); Sodium 137 mmol/L (135-145)
--- NOTE | 2020-06-05 11:11 | P.DS_ITS ---
DS: Providers Provider Date of admission: 06/04/20 03:46 Primary care physician: Elsa Ulloa MD Consults: 06/03/20 23:15 Consult to Care Team Stat Comment: Reason for consultation: detox etoh 06/05/20 07:36 Consult to Care Team Routine Comment: Reason for consultation: alcohol and drug abuse DS: Diagnosis Discharge Diagnosis (1) Alcohol withdrawal: Status: Acute DS: Medications Discharge Medications Home Medications: Previous Rx's Medication Instructions Recorded folic acid 1 mg PO DAILY #30 tab 06/05/20 thiamine HCl (vitamin B1) 100 mg PO DAILY #30 tab 06/05/20 DS: Summary Hospital Course Hospital Course: HPI 19 y/o male with PMHX of Alcohol abuse who presented from home due to alcohol intoxication. Per history provided by the patient, for the past 2 years has been drinking excessively, after patient lost her brother and since has been drinking in large quantities. Last alcoholic abuse patient reports that was a combination of beer/hard liquor. Las alcoholic drink was yesterday per patient. Reports generalized weakness, poor appetite, reggie any fever, chest pain or SOB. On presentation patient was noted to be hemodynamically stable, no evidence of fever on admission, no leukocytosis or any evidence of fever. Covid test negative. Patient was given IV magnesium and IV phenobarbital per protocol. Decision for admission given. hospital course 19-year-old male admitted with alcohol withdrawal patient was started on phenobarbital and CIWA protocol and supportive management, patient also reported uses cocaine and marijuana, patient was monitored for with drug withdrawal symptoms, patient's withdrawal symptoms improved slowly, patient was stable, care team was consulted and patient was provided with outpatient resources, and was stable discharged home Time Spent with Patient Time attestation: Total time spent providing and/or coordinating discharge services: Physical Exam Vital Signs: Vital Signs: Last Vital Signs Temp 97.5 F 06/05/20 07:43 Pulse 67 06/05/20 07:43 Resp 17 06/05/20 07:43 BP 124/55 L 06/05/20 07:43 Pulse Ox 100 06/05/20 07:43 Body Mass Index 23.0 DS: Data Data Completed and Pending Labs on day of discharge: 06/03/20 21:20 ECG 12 lead EKG Stat EKG Documentation DIRECTED Consult Rx EtOH Phenob Dosing 1 each MISCELLANE ONCE ONE 06/03/20 21:24 Drug Screen Urine Stat UA CC w/rflx Micro + Cult Stat 06/03/20 21:30 0.9 % Sodium Chloride [Ns] 1,000 ml Folic Acid 1 mg Thiamine HCL 100 mg MVI, Adult [Infuvite Adult] 10 ml IV 999 mls/hr 06/03/20 21:40 Basic Metabolic Panel Stat Complete Blood Count Auto Diff Stat Ethanol Stat Lipase Stat Liver Panel Stat Magnesium Stat Partial Thromboplastin Time Stat Prothrombin Time INR Stat 06/03/20 21:45 PHENobarbitaL sodium 248 mg IM ONCE ONE 06/03/20 22:12 Ammonia Stat 06/03/20 22:22 Magnesium Sulfate/H2O 2 gm in 50 ml IV ONCE 06/03/20 22:53 MVI, Adult [Infuvite Adult] 10 ml .ROUTE .STK-MED ONE Thiamine HCL 200 mg .ROUTE .STK-MED ONE 06/03/20 23:01 MVI, Adult [Infuvite Adult] 10 ml .ROUTE .STK-MED ONE 06/03/20 23:53 COVID-19 ID NOW (Dejesus) Stat 06/04/20 00:20 Glucose, Whole Blood Routine 06/04/20 00:24 Magnesium Hydrox/Alum Hydrox [Maalox] 30 ml PO ONCE ONE 06/04/20 02:00 PHENobarbitaL sodium 186 mg IM 0200,0500 06/04/20 03:36 Transfer Order Routine 06/04/20 06:14 Basic Metabolic Panel Routine Complete Blood Count Auto Diff Routine 06/05/20 08:28 Basic Metabolic Panel Routine Complete Blood Count Auto Diff Routine Magnesium Routine Laboratory Last Values WBC 5.3 X10*3/uL (4.8-10.8) 06/05/20 08:28 RBC 4.74 X10*6/uL (4.60-5.80) 06/05/20 08:28 Hgb 15.1 g/dl (14.0-18.0) 06/05/20 08:28 Hct 45.2 % (42-52) 06/05/20 08:28 MCV 95.4 fL (80-98) 06/05/20 08:28 MCH 31.9 pg (27.0-33.0) 06/05/20 08:28 MCHC 33.4 g/dl (31.0-36.0) 06/05/20 08:28 RDW 13.1 % (11.0-16.0) 06/05/20 08:28 Plt Count 220 X10*3/uL (160-400) 06/05/20 08: MPV 10.4 fL (9.4-12.4) 06/05/20 08:28 Immature Gran % (Auto) 0.2 % (0.0-0.4) 06/05/20 08: Neut % (Auto) 35.8 % (45-73) L 06/05/20 08: Lymph % (Auto) 51.0 % (20-40) H 06/05/20 08: [place] % (Auto) 10.1 % (2-11) 06/05/20 08: Eos % (Auto) 2.1 % (0-4) 06/05/20 08: Baso % (Auto) 0.8 % (0-2) 06/05/20 08: Lymph # (Auto) 2.7 X10*3/uL (1.2-4.9) 06/05/20 08:28 [place] # (Auto) 0.5 X10*3/uL (0.1-1.2) 06/05/20 08: Eos # (Auto) 0.1 X10*3/uL (0.0-0.4) 06/05/20 08:28 Baso # (Auto) 0.0 X10*3/uL (0.0-0.2) 06/05/20 08:28 Abs Immat Gran (auto) 0.01 X10*3/uL (0.00-0.03) 06/05/20 08:28 Absolute Neuts (auto) 1.9 X10*3/uL (2.0-8.3) L 06/05/20 08: Absolute Nucleated RBC 0.000 X10*3/uL (0.0-0.012) 06/05/20 08: Nucleated RBC % (auto) 0.0 /100WBC (0.0-0.2) 06/05/20 08:28 PT 13.0 SEC (10.8-13.0) 06/03/20 21:40 INR 1.1 (0.9-1.1) 06/03/20 21:40 APTT 32.7 SEC (24.1-38.0) 06/03/20 21:40 Sodium 137 mmol/L (135-145) 06/05/20 08:28 Potassium 3.5 mmol/l (3.3-5.1) 06/05/20 08:28 Chloride 98 mmol/L (96-108) 06/05/20 08:28 Carbon Dioxide 30 mmol/L (22-29) H 06/05/20 08:28 Anion Gap 13 (12-20) 06/05/20 08:28 BUN 10 mg/dL (9-16) 06/05/20 08:28 Creatinine 1.03 mg/dL (0.5-1.4) 06/05/20 08:28 Estim Creat Clear Calc 123.7 06/05/20 08:28 Estimated GFR > 60 06/05/20 08:28 POC Glucose 100 mg/dL (60-115) 06/04/20 00:20 Random Glucose 108 mg/dL (60-115) 06/05/20 08:28 Calcium 9.1 mg/dL (8.4-10.2) 06/05/20 08:28 Magnesium 2.1 mg/dL (1.6-2.6) 06/05/20 08:28 Total Bilirubin 0.8 mg/dL (0.0-1.0) 06/03/20 21:40 Direct Bilirubin 0.4 mg/dL (0.0-0.5) 06/03/20 21:40 AST 36 U/L (5-37) D 06/03/20 21:40 ALT 31 U/L (0-40) 06/03/20 21:40 Alkaline Phosphatase 95 U/L (39-117) 06/03/20 21:40 Ammonia 26 umol/L (13-55) 06/03/20 22:12 Total Protein 7.7 g/dL (6.5-8.0) 06/03/20 21:40 Albumin 4.7 g/dL (3.5-5.0) 06/03/20 21:40 Lipase 24 U/L (8-78) 06/03/20 21:40 Urine Color YELLOW 06/04/20 00:26 Urine Appearance CLEAR 06/04/20 00:26 Urine pH 7.5 (5.0-8.0) 06/04/20 00:26 Ur Specific [place] 1.010 (1.005-1.025) 06/04/20 00:26 Urine Protein TRACE MG/DL (NEG-TRACE) 06/04/20 00:26 Urine Glucose (UA) NEG MG/DL (NEG) 06/04/20 00:26 Urine Ketones 15 MG/DL (NEG) 06/04/20 00:26 Urine Blood NEG (NEG) 06/04/20 00:26 Urine Nitrite NEG (NEG) 06/04/20 00:26 Ur Leukocyte Esterase NEG (NEG) 06/04/20 00:26 Urine Opiates Screen Not Detected (Not Detect) 06/04/20 00:26 Ur Barbiturates Screen Not Detected (Not Detect) 06/04/20 00:26 Ur Phencyclidine Scrn Not Detected (Not Detect) 06/04/20 00:26 Ur Amphetamines Screen Not Detected (Not Detect) 06/04/20 00:26 U Benzodiazepines Scrn Not Detected (Not Detect) 06/04/20 00:26 Urine Cocaine Screen POSITIVE (Not Detect) H 06/04/20 00:26 U Marijuana (THC) Screen POSITIVE (Not Detect) H 06/04/20 00:26 Ethyl Alcohol < 10 mg/dL 06/03/20 21:40 COVID-19 (CONCHA) Negative (Negative) 06/04/20 00:26 COVID-19 Clin Com See Note 06/04/20 00:26 Discharge Plan Discharge Anticipated Discharge Date/Time: 06/05/20 10:56 Patient Disposition: Home, Self-Care Referrals: Elsa Ulloa MD [Primary Care Provider] - Discharge Medications: New thiamine HCl (vitamin B1) 100 mg tablet 100 mg PO DAILY Qty: 30 RF: 0 folic acid 1 mg tablet 1 mg PO DAILY Qty: 30 RF: 0 Discharge Orders: Discharge Order (Routine); Ordered 06/05/20 Ordered By: Adin Kaur Diet: advance to usual diet Activity on Discharge: As tolerated Discharge Date/Time: 06/05/20 12:59 Visit Report Forms: Patient Portal Discharge page Care Plan Goals: prevent hospitalizatiion and stay healthy Health Concerns: Alcohol abuse and drug abuse Plan of Treatment: care team counseled
--- NOTE | 2020-06-05 11:11 | MHC.CM.PN ---
PATIENT TELLS THIS PRODUCTION OFFICER THAT HE IS AGREEABLE TO A CARE TEAM CONSULT HE IS AWARE THAT HE IS MEDICALLY DISCHARGED AND AGREES TO WAIT TO SPEAK WITH THE CARE TEAM.
--- NOTE | 2020-06-05 12:09 | MHC.CARE ---
CARE team called to see pt in 377 for consult that has been orders days ago and asked that lynda be seen. Pt was admitted to medical s/p ED visit for ETOH. T/w met w pt who was informed he had dc orders in and ready to dc per . T/w has what types of resources might be helpful and pt stated he was not sure he wanted anything and not anything where I stay there referring to CSS or ATS level of support. T/w provided resources on IOP and support groups as well as therapy for dual dx if desired. Pt was accepted info politely. Pt stated that his plan is to go home and sleep and that his mother is main source of support. Pr denied any acute needs and denied feeling depressed or suicidal.
== END 2020-06-05 12:59 | disposition home or self-care (01) | DRG 775 ==
LOC: HO.ED 06-04 03:12 → HO.S3 06-04 03:55
PROVIDERS: Nurse Practitioner Family; Admitting Provider Internal Medicine; Emergency Provider Internal Medicine; PCP Pediatrics; Visit Provider Internal Medicine
DX: F10.239 Alcohol dependence with withdrawal, unspecified (principal); F17.210 Nicotine dependence, cigarettes, uncomplicated; J45.909 Unspecified asthma, uncomplicated; Z71.6 Tobacco abuse counseling; Z20.828 Contact with and (suspected) exposure to other viral communicable diseases; Z79.899 Other long term (current) drug therapy
CPT/HCPCS: 36415; 80048; 80076; 80307; 80320; 81003; 82140; 82947; 83690; 83735; 85025; 85610; 85730; 87635; 93005; 96365; 96366; 96367; 96372; 99285; 99291; J2560; J3411; J3475

== ENCOUNTER 2020-06-09 17:50 | Emergency (ER) | payer MEDICAID, SELFPAY ==
[2020-06-09 18:10] VITALS: BP 121/73; BP 140/94; PULSE 90; PULSE 92; RESP 20; O2SAT 95; O2SAT 99; BMI 29.2
--- NOTE | 2020-06-09 18:10 | ECG_ITS ---
Test Reason : ETOH Blood Pressure : / mmHG Vent. Rate : 089 BPM Atrial Rate : 089 BPM P-R Int : 166 ms QRS Dur : 096 ms QT Int : 362 ms P-R-T Axes : 060 069 048 degrees QTc Int : 440 ms Normal sinus rhythm Normal ECG When compared with ECG of 03-JUN-2020 21:47, No significant change was found Referred By: Ish Brooke Electronically Signed By:VIKAS DHALIWAL MD
--- NOTE | 2020-06-09 18:10 | XR_ITS ---
EXAMINATION: XR CHEST CLINICAL INFORMATION: Mental status changes COMPARISON: 03/09/2020 TECHNIQUE: Frontal view of the chest was obtained. FINDINGS: Normal symmetric lung volumes. No parenchymal consolidation. No pleural effusion. No pneumothorax. Cardiomediastinal silhouette and pulmonary vascularity are within normal limits. No acute osseous abnormalities. XR/XR chest 1V IMPRESSION: Unremarkable examination.
--- NOTE | 2020-06-09 18:15 | ED.GENADULT ---
HPI - General Adult General Chief complaint: ETOH/Substance Use Stated complaint: etoh, seizure Time Seen by Provider: 06/09/20 18:09 Source: patient and EMS Mode of arrival: EMS Limitations: altered mental status History of Present Illness HPI narrative: 19-year-old male brought in by ambulance for unresponsiveness, reportedly patient was drinking alcohol today and possible drug abuse also, patient had 1 time witnessed tonic-clonic seizure details are not available currently, patient was evaluated initially in room 4 patient was unresponsive, only respond to painful stimuli unable to obtain meaningful history from the patient at this point, primary screening medical exam show no obvious trauma no head injury. Related Data Previous Rx's Medication Instructions Recorded folic acid 1 mg PO DAILY #30 tab 06/05/20 thiamine HCl (vitamin B1) 100 mg PO DAILY #30 tab 06/05/20 Allergies Allergy/AdvReac Type Severity Reaction Status Date / Time No Known Allergies Allergy Verified 05/11/20 04:41 [No Known Allergies*] Review of Systems Review of Systems: Yes Unobtainable due to mental status PMFSH Past Medical History Medical History No known health problems Family History Family History Other Family history non-contributory Social History Social History Household Members: Other Housing: Other Alcohol intake: current Smoking Status: Current every day smoker Tobacco Type: Cigarette Packs Per Day: 1 Cigarettes Per Day: 20.0 Second Hand Smoke Exposure: Yes Use of substances other than those prescribed or required for medical reasons: Yes Substance Use Type: Crack/Cocaine Advance Directives: No Advance Directives Information Provided: Yes service: No Current occupational status: unemployed Physical Exam Vital Signs: Vital Signs: Last Vital Signs Pulse 92 06/09/20 18:10 Resp 20 06/09/20 18:10 BP 121/73 06/09/20 18:10 Pulse Ox 99 06/09/20 18:10 Body Mass Index 29.2 Vital signs have been reviewed as normal and appeared to be correct. Blood pressure normal. Heart rate normal. Respiration rate normal. Temperature normal. Oxygen saturation normal. Appearance: Unresponsive, only response to painful stimuli.. No acute distress. Head: Normal external exam. Normocephalic. Atraumatic. No Lopez signs noted. No raccoon eyes noted Eyes: PERRLA. EOMI. Conjunctiva and sclera normal. Eyelids normal. ENT: EAC normal. TM's Normal. Pharynx normal. Uvula midline. Moist mucous membranes. No trismus noted. No drooling noted. No muffled voice noted. Neck: Normal inspection. Neck supple. FROM. No adenopathy. Thyroid Normal. No meningeal signs. No neck mass noted. CVS: Normal heart rate and rhythm. Heart sound normal. No murmurs noted. Pulses normal throughout. Respiratory: No respiratory distress. Painless inspiration. Breath sounds normal. No wheezes/rales/rhonchi noted. Chest nontender. No accessory muscle usage noted or decreased air movement noted. Abdomen: Soft and nontender. Bowel sounds normal in all 4 quadrants. No distention noted. No organomegaly noted. No visible injury noted. Back: No CVA tenderness. Full range of motion noted. Skin: Skin warm and dry. Normal skin color. Normal skin turgor. No rashes/lesions/lacerations noted. Extremities: No lower extremity edema. Extremities exhibit normal range of motion. Extremities nontender. Neuro: Oriented X 3. No motor deficit. No sensory deficit. Reflexes normal. Course Course Course Narrative: 19-year-old male came in by ambulance unresponsive likely alcohol intoxicated, patient now is awake, belligerent, and patient is adamant to walk out without complete my full assessment patient's alcohol level is 400 patient cannot find a ride home and patient cannot be lid free in the street, police was called to manage patient aggressive behavior, patient spits and officers face as a result patient was discharged with the police. Medical Decision Making Lab Data Result diagrams: 06/09/20 18:46 06/09/20 18:46 Labs: Lab Results 06/09/20 06/09/20 06/09/20 Range/Units 18:24 18:27 18:46 WBC (4.8-10.8) X10*3/uL RBC (4.60-5.80) X10*6/uL Hgb (14.0-18.0) g/dl Hct (42-52) % MCV (80-98) fL MCH (27.0-33.0) pg MCHC (31.0-36.0) g/dl RDW (11.0-16.0) % Plt Count (160-400) X10*3/uL MPV (9.4-12.4) fL Immature Gran % (Auto) (0.0-0.4) % Neut % (Auto) (45-73) % Lymph % (Auto) (20-40) % [place] % (Auto) (2-11) % Eos % (Auto) (0-4) % Baso % (Auto) (0-2) % Lymph # (Auto) (1.2-4.9) X10*3/uL [place] # (Auto) (0.1-1.2) X10*3/uL Eos # (Auto) (0.0-0.4) X10*3/uL Baso # (Auto) (0.0-0.2) X10*3/uL Abs Immat Gran (auto) (0.00-0.03) X10*3/uL Absolute Neuts (auto) (2.0-8.3) X10*3/uL Absolute Nucleated RBC (0.0-0.012) X10*3/uL Nucleated RBC % (auto) (0.0-0.2) /100WBC Sodium 140 (135-145) mmol/L Potassium 5.0 D (3.3-5.1) mmol/l Chloride 101 (96-108) mmol/L Carbon Dioxide 24 (22-29) mmol/L Anion Gap 20 (12-20) BUN 9 (9-16) mg/dL Creatinine 0.98 (0.5-1.4) mg/dL Estim Creat Clear Calc 144.6 Estimated GFR > 60 Random Glucose 84 (60-115) mg/dL Calcium 8.8 (8.4-10.2) mg/dL Total Bilirubin (0.0-1.0) mg/dL Direct Bilirubin (0.0-0.5) mg/dL AST (5-37) U/L ALT (0-40) U/L Alkaline Phosphatase (39-117) U/L Total Protein (6.5-8.0) g/dL Albumin (3.5-5.0) g/dL Lipase 69 (8-78) U/L Urine Color STRAW Urine Appearance CLEAR Urine pH 6.5 (5.0-8.0) Ur Specific [place] <= 1.005 (1.005-1.025) Urine Protein NEG (NEG-TRACE) MG/DL Urine Glucose (UA) NEG (NEG) MG/DL Urine Ketones NEG (NEG) MG/DL Urine Blood NEG (NEG) Urine Nitrite NEG (NEG) Ur Leukocyte Esterase NEG (NEG) Urine Opiates Screen Not Detected (Not Detect) Ur Barbiturates Screen POSITIVE H (Not Detect) Ur Phencyclidine Scrn Not Detected (Not Detect) Ur Amphetamines Screen Not Detected (Not Detect) U Benzodiazepines Scrn Not Detected (Not Detect) Urine Cocaine Screen Not Detected (Not Detect) U Marijuana (THC) Screen POSITIVE H (Not Detect) Ethyl Alcohol mg/dL 06/09/20 06/09/20 06/09/20 Range/Units 18:46 18:46 18:46 WBC 5.4 (4.8-10.8) X10*3/uL RBC 5.02 (4.60-5.80) X10*6/uL Hgb 16.2 (14.0-18.0) g/dl Hct 48.7 (42-52) % MCV 97.0 (80-98) fL MCH 32.3 (27.0-33.0) pg MCHC 33.3 (31.0-36.0) g/dl RDW 13.4 (11.0-16.0) % Plt Count 275 (160-400) X10*3/uL MPV 9.9 (9.4-12.4) fL Immature Gran % (Auto) 0.2 (0.0-0.4) % Neut % (Auto) 55.8 (45-73) % Lymph % (Auto) 31.5 (20-40) % [place] % (Auto) 9.2 (2-11) % Eos % (Auto) 2.0 (0-4) % Baso % (Auto) 1.3 (0-2) % Lymph # (Auto) 1.7 (1.2-4.9) X10*3/uL [place] # (Auto) 0.5 (0.1-1.2) X10*3/uL Eos # (Auto) 0.1 (0.0-0.4) X10*3/uL Baso # (Auto) 0.1 (0.0-0.2) X10*3/uL Abs Immat Gran (auto) 0.01 (0.00-0.03) X10*3/uL Absolute Neuts (auto) 3.0 (2.0-8.3) X10*3/uL Absolute Nucleated RBC 0.000 (0.0-0.012) X10*3/uL Nucleated RBC % (auto) 0.0 (0.0-0.2) /100WBC Sodium (135-145) mmol/L Potassium (3.3-5.1) mmol/l Chloride (96-108) mmol/L Carbon Dioxide (22-29) mmol/L Anion Gap (12-20) BUN (9-16) mg/dL Creatinine (0.5-1.4) mg/dL Estim Creat Clear Calc Estimated GFR Random Glucose (60-115) mg/dL Calcium (8.4-10.2) mg/dL Total Bilirubin 0.3 (0.0-1.0) mg/dL Direct Bilirubin 0.2 (0.0-0.5) mg/dL AST 70 H (5-37) U/L ALT 67 H (0-40) U/L Alkaline Phosphatase 90 (39-117) U/L Total Protein 8.0 (6.5-8.0) g/dL Albumin 4.9 (3.5-5.0) g/dL Lipase (8-78) U/L Urine Color Urine Appearance Urine pH (5.0-8.0) Ur Specific [place] (1.005-1.025) Urine Protein (NEG-TRACE) MG/DL Urine Glucose (UA) (NEG) MG/DL Urine Ketones (NEG) MG/DL Urine Blood (NEG) Urine Nitrite (NEG) Ur Leukocyte Esterase (NEG) Urine Opiates Screen (Not Detect) Ur Barbiturates Screen (Not Detect) Ur Phencyclidine Scrn (Not Detect) Ur Amphetamines Screen (Not Detect) U Benzodiazepines Scrn (Not Detect) Urine Cocaine Screen (Not Detect) U Marijuana (THC) Screen (Not Detect) Ethyl Alcohol 400 H* mg/dL Discharge Plan Discharge Clinical Impression: Alcohol intoxication Patient Disposition: Home, Self-Care Additional Instructions: Patient left the ED in the police custody. Prescriptions: No Action thiamine HCl (vitamin B1) 100 mg tablet 100 mg PO DAILY Qty: 30 RF: 0 folic acid 1 mg tablet 1 mg PO DAILY Qty: 30 RF: 0
[2020-06-09] MEDS: 0.9 % Sodium Chloride 1,000 ML 999 ML IVCONT (18:19)
--- NOTE | 2020-06-09 18:30 | PC.NURSE ---
pt ambulated to the bathroom with unsteady gait, provided a urine sample
[2020-06-09 18:38] LABS: Glucose Urine UA NEG (NEG); Leukocyte Esterase Urine NEG (NEG); Nitrite Urine NEG (NEG); PH 6.5 (5.0-8.0); Specific Gravity - Urine <= 1.005 (1.005-1.025); Urine Blood NEG (NEG); Urine Ketones NEG (NEG); Urine Protein NEG (NEG-TRACE)
[2020-06-09 18:39] LABS: Appearance Urine CLEAR; Color Urine STRAW
[2020-06-09 18:56] LABS: Basophils Absolute Auto 0.1 X10*3/uL (0.0-0.2); Basophils Percent Auto 1.3 % (0-2); Eosinophils Absolute Auto 0.1 X10*3/uL (0.0-0.4); Hematocrit 48.7 % (42-52); Hemoglobin 16.2 g/dl (14.0-18.0); Imm Gran Abs Auto 0.01 X10*3/uL (0.00-0.03); Imm Gran Pct Auto 0.2 % (0.0-0.4); Lymphocytes Absolute Auto 1.7 X10*3/uL (1.2-4.9); Lymphocytes Percent Auto 31.5 % (20-40); Mean Corpuscular HGB Conc 33.3 g/dl (31.0-36.0); Mean Corpuscular Hemoglobin 32.3 pg (27.0-33.0); Mean Platelet Volume 9.9 fL (9.4-12.4); Monocytes Absolute Auto 0.5 X10*3/uL (0.1-1.2); Monocytes Percent Auto 9.2 % (2-11); Neutrophils Percent Auto 55.8 % (45-73); Platelet Count 275 X10*3/uL (160-400); Red Blood Count 5.02 X10*6/uL (4.60-5.80); Red Cell Distribution Width 13.4 % (11.0-16.0); White Blood Count 5.4 X10*3/uL (4.8-10.8)
[2020-06-09 18:57] LABS: MANUAL DIFF FLAG NO
[2020-06-09 19:12] LABS: Amphetamine Screen Urine Not Detected (Not Detect); Barbiturates, Urine POSITIVE (Not Detect); Benzodiazepines Screen Urine Not Detected (Not Detect); Cannabinoid Screen Urine POSITIVE (Not Detect); Cocaine Screen Urine Not Detected (Not Detect); Opiate Screen Urine Not Detected (Not Detect); Phencyclidine Screen Urine Not Detected (Not Detect)
--- NOTE | 2020-06-09 19:13 | PC.NURSE ---
PATIENT COMING OUT OF ROOM, ATTEMPTING TO LEAVE. SECURITY COMING DOWN THE SANCHEZ, PATIENT STEPPING TOWARDS THEM AND THREATENING THEM. EVI ESCOBAR HAVING TO REDIRECT PATIENT BACK TO THE ROOM. PATIENT SITTING DOWN IN THE ROOM ON THE BED. THEN LIGHTING A CIGARETTE. [facility] [employer] CONTACTED TO REMOVE PATIENT FROM THE PROPERTY. POLICE ARRIVING PATIENT CALM AND COOPERATIVE. THEN STARTING TO SWEARING AT POLICE, SPITTING IN POLICE OFFICERS FACE. POLICE ESCORTING PATIENT OUT OF HOSPITAL.
[2020-06-09 19:23] LABS: Ethanol 400 mg/dL
[2020-06-09 19:24] LABS: Anion Gap 20 (12-20); Blood Urea Nitrogen 9 mg/dL (9-16); Calcium 8.8 mg/dL (8.4-10.2); Carbon Dioxide 24 mmol/L (22-29); Chloride 101 mmol/L (96-108); Creatinine Clr Calc Pharmacy 144.6; Estimated Glomerular Filt Rate > 60; Glucose Random 84 mg/dL (60-115); Lipase 69 U/L (8-78); Sodium 140 mmol/L (135-145)
[2020-06-09 19:26] LABS: Alanine Aminotransferase 67 U/L (0-40); Albumin Level 4.9 g/dL (3.5-5.0); Alkaline Phosphatase 90 U/L (39-117); Aspartate Amino Transferase 70 U/L (5-37); Bilirubin Direct 0.2 mg/dL (0.0-0.5); Bilirubin Total 0.3 mg/dL (0.0-1.0)
--- NOTE | 2020-06-09 19:34 | PC.NURSE ---
PATIENT TAKEN INTO [place] [facility]ICE DEPARTMENT'S CUSTODY AFTER SPITTING IN CHILD SUPPORT SPECIALIST'S FACE AND TRYING TO ATTACK HOSPITAL STAFF (SEE KENIA'S PREVIOUS NURSE'S NOTE). THIS RN SPOKE TO PATIENT'S MOTHER (DANG) ON THE PHONE, AWARE THAT PATIENT IS IN POLICE CUSTODY AT THIS TIME.
== END 2020-06-09 19:38 ==
PROVIDERS: Emergency Provider Emergency Medicine
DX: F10.120 Alcohol abuse with intoxication, uncomplicated (principal); Y90.8 Blood alcohol level of 240 mg/100 ml or more; F17.210 Nicotine dependence, cigarettes, uncomplicated
CPT/HCPCS: 36415; 71045; 80048; 80076; 80307; 80320; 81003; 83690; 85025; 93005; 99283

== ENCOUNTER 2020-11-11 11:43 | Emergency (ER) | payer MEDICAID, SELFPAY ==
[2020-11-11 11:51] VITALS: BP 140/79; PULSE 90; RESP 18; TEMP 36.1; O2SAT 96; BMI 21.7
[2020-11-11 12:18] VITALS: BP 122/89; PULSE 84; RESP 18; TEMP 37.3; O2SAT 98
--- NOTE | 2020-11-11 12:22 | ED.NAVMDI ---
HPI - Nausea/Vomiting/Diarrhea General Chief complaint: Nausea/Vomiting/Diarrhea Stated complaint: VOMITING BLOOD Time Seen by Provider: 11/11/20 12:16 History of Present Illness HPI Narrative: Patient complains of feeling shaky body aches nauseous, vomiting after drinking all day yesterday and last night, he is also concerned as when he was vomiting he noticed some spots of blood in the vomit he denies any blood in the stool or black tarry stool, he says the vomit was normal color with flecks of blood, he has no abdominal pain Related Data Previous Rx's Medication Instructions Recorded folic acid 1 mg PO DAILY #30 tab 06/05/20 thiamine HCl (vitamin B1) 100 mg PO DAILY #30 tab 06/05/20 ondansetron HCl [Zofran] 4 mg PO Q6H PRN #5 tab 11/11/20 Allergies Allergy/AdvReac Type Severity Reaction Status Date / Time No Known Allergies Allergy Verified 11/11/20 11:51 [No Known Allergies*] Review of Systems Review of Systems: Positive for nausea vomiting and some flecks of blood in the vomit Negatives are no fever no chills no weakness no fainting no feeling faint no neck pain no chest pain no shortness of breath no abdominal pain no diarrhea no urinary complaints no dysuria no frequency no blood in the urine, no rash, no bleeding from any other site Yes all other systems are reviewed and are negative [facility] Past Medical History Attestation statement: The following information was validated with the patient. [facility] Narrative: Patient is an alcoholic who was incarcerated for several months and did not drink but has been out for several weeks and has started drinking again Source: nursing notes reviewed Medical History No known health problems Family History Family History Other Family history non-contributory Social History Social History Household Members: Other Housing: Other Housing Other:: stays with girlfriend sometimes and grandmother sometimes Do you presently have visiting nurse or other home services: No Alcohol intake: current Alcohol intake frequency: other Alcohol type: beer and hard liquor Patient Tobacco Use Status: Current everyday Tobacco user Cigarette Packs Per Day: 1 Cigarettes Per Day: 20.0 Smoked in Last 30 Days: Yes Second Hand Smoke Exposure: Yes Use of substances other than those prescribed or required for medical reasons: No Substance Use Type: Crack/Cocaine Advance Directives: Yes Advance Directives Information Provided: Yes Advance Directives on File: No service: No Current occupational status: unemployed Physical Exam Vital Signs: Vital Signs: Last Vital Signs Temp 99.1 F 11/11/20 12:18 Pulse 88 11/11/20 15:00 Resp 17 11/11/20 15:00 BP 139/79 11/11/20 15:00 Pulse Ox 99 11/11/20 15:00 Body Mass Index 21.7 General appearance is no acute distress, comfortable and cooperative A&O x3 The pupils are not pale The mucous membranes are moist, pharynx is otherwise normal Neck is supple The chest is clear to auscultation bilateral The chest wall is nontender The abdomen is nontender no rebound no guarding There is no flank tenderness Extremities is full range of motion x4, no edema The skin no rash no purpura and no petechiae Neuro there is no focal motor or sensory deficit, he is A&O x3, verbal communication both understanding and verbal expression are normal, there is a slight tremor in his hands Course Course Course Narrative: Patient came in nauseous vomiting tremulous After 2 L of fluids and Zofran he feels back to his normal baseline, he is no longer tremulous, he is not nauseous he is tolerating p.o. repeat abdominal exam is nontender Labs did not reveal any acute abnormality, LFTs and lipase were normal Patient has been out of residential for just a few weeks but has started drinking, he is advised to try to seek counseling or treatment for alcohol dependence and says he will consider He does say he is eating normally and has a varied and full diet at home MDM - Nausea/Vomiting/Diarrhea Medical Records Attestation: I reviewed the patient's medical records. Lab Data Attestation: I reviewed the patient's lab results. Result diagrams: 11/11/20 12:55 11/11/20 14:42 Labs: Lab Results 11/11/20 11/11/20 Range/Units 12:55 14:42 WBC 5.6 (4.8-10.8) X10*3/uL RBC 5.02 (4.60-5.80) X10*6/uL Hgb 15.2 (14.0-18.0) g/dl Hct 44.4 (42-52) % MCV 88.4 (80-98) fL MCH 30.3 (27.0-33.0) pg MCHC 34.2 (31.0-36.0) g/dl RDW 13.2 (11.0-16.0) % Plt Count 267 (160-400) X10*3/uL MPV 10.0 (9.4-12.4) fL Immature Gran % (Auto) 0.2 (0.0-0.4) % Neut % (Auto) 63.5 (45-73) % Lymph % (Auto) 27.3 (20-40) % [place] % (Auto) 7.8 (2-11) % Eos % (Auto) 0.5 (0-4) % Baso % (Auto) 0.7 (0-2) % Lymph # (Auto) 1.5 (1.2-4.9) X10*3/uL [place] # (Auto) 0.4 (0.1-1.2) X10*3/uL Eos # (Auto) 0.0 (0.0-0.4) X10*3/uL Baso # (Auto) 0.0 (0.0-0.2) X10*3/uL Abs Immat Gran (auto) 0.01 (0.00-0.03) X10*3/uL Absolute Neuts (auto) 3.6 (2.0-8.3) X10*3/uL Absolute Nucleated RBC 0.000 (0.0-0.012) X10*3/uL Nucleated RBC % (auto) 0.0 (0.0-0.2) /100WBC Sodium 140 (135-145) mmol/L Potassium 4.3 (3.3-5.1) mmol/L Chloride 102 (96-108) mmol/L Carbon Dioxide 25 (22-29) mmol/L Anion Gap 17 (12-20) BUN 11 (9-16) mg/dL Creatinine 0.85 (0.5-1.4) mg/dL Estim Creat Clear Calc 139.9 Estimated GFR > 60 Random Glucose 80 (60-115) mg/dL Calcium 9.3 (8.4-10.2) mg/dL Total Bilirubin 0.6 (0.0-1.0) mg/dL Direct Bilirubin 0.2 (0.0-0.5) mg/dL AST 28 D (5-37) U/L ALT 21 (0-40) U/L Alkaline Phosphatase 78 (39-117) U/L Total Protein 7.1 (6.5-8.0) g/dL Albumin 4.5 (3.5-5.0) g/dL Lipase 26 (8-78) U/L Discharge Plan Discharge Clinical Impression: Alcohol abuse Patient Disposition: Home, Self-Care Additional Instructions: Best plan would be to seek treatment for alcohol dependence If you vomited any more blood or have any worse condition or any concerns return immediately to the ER Our evaluation today did not really feel any dangerous condition except for alcohol overuse Prescriptions: New ondansetron HCl [Zofran] 4 mg tablet 4 mg PO Q6H PRN (Reason: nausea and vomiting) Qty: 5 RF: 0 No Action thiamine HCl (vitamin B1) 100 mg tablet 100 mg PO DAILY Qty: 30 RF: 0 folic acid 1 mg tablet 1 mg PO DAILY Qty: 30 RF: 0 Interventions: ED Discharge Assessment Last Done: 11/11/20 15:56 Discharge Date/Time: 11/11/20 15:58
[2020-11-11] MEDS: 0.9 % Sodium Chloride 1,000 ML 999 ML IVCONT ×2 (13:05→14:30)
[2020-11-11 13:10] LABS: MANUAL DIFF FLAG NO
[2020-11-11] MEDS: ondansetron HCL 4 MG/2 ML VIAL IVPUSH (13:10)
[2020-11-11 13:13] LABS: Basophils Percent Auto 0.7 % (0-2); Eosinophils Percent Auto 0.5 % (0-4); Hematocrit 44.4 % (42-52); Hemoglobin 15.2 g/dl (14.0-18.0); Imm Gran Abs Auto 0.01 X10*3/uL (0.00-0.03); Imm Gran Pct Auto 0.2 % (0.0-0.4); Lymphocytes Absolute Auto 1.5 X10*3/uL (1.2-4.9); Lymphocytes Percent Auto 27.3 % (20-40); Mean Corpuscular HGB Conc 34.2 g/dl (31.0-36.0); Mean Corpuscular Hemoglobin 30.3 pg (27.0-33.0); Mean Corpuscular Volume 88.4 fL (80-98); Monocytes Absolute Auto 0.4 X10*3/uL (0.1-1.2); Monocytes Percent Auto 7.8 % (2-11); Neutrophils Absolute Auto 3.6 X10*3/uL (2.0-8.3); Neutrophils Percent Auto 63.5 % (45-73); Platelet Count 267 X10*3/uL (160-400); Red Blood Count 5.02 X10*6/uL (4.60-5.80); Red Cell Distribution Width 13.2 % (11.0-16.0); White Blood Count 5.6 X10*3/uL (4.8-10.8)
--- NOTE | 2020-11-11 14:17 | PC.NURSE ---
IVF complete. Pt is no longer nauseated and has tolerated a cup of water with no vomiting. zofran and valium not given at this time
[2020-11-11 15:00] VITALS: BP 139/79; PULSE 88; RESP 17; O2SAT 99
[2020-11-11 15:32] LABS: Alanine Aminotransferase 21 U/L (0-40); Albumin Level 4.5 g/dL (3.5-5.0); Alkaline Phosphatase 78 U/L (39-117); Anion Gap 17 (12-20); Aspartate Amino Transferase 28 U/L (5-37); Bilirubin Direct 0.2 mg/dL (0.0-0.5); Bilirubin Total 0.6 mg/dL (0.0-1.0); Blood Urea Nitrogen 11 mg/dL (9-16); Calcium 9.3 mg/dL (8.4-10.2); Carbon Dioxide 25 mmol/L (22-29); Chloride 102 mmol/L (96-108); Creatinine Clr Calc Pharmacy 139.9; Estimated Glomerular Filt Rate > 60; Glucose Random 80 mg/dL (60-115); Lipase 26 U/L (8-78); Potassium 4.3 mmol/L (3.3-5.1); Sodium 140 mmol/L (135-145); Total Protein 7.1 g/dL (6.5-8.0)
== END 2020-11-11 15:58 | disposition home or self-care (01) ==
PROVIDERS: Physician Assistant Medical; Emergency Provider Emergency Medicine
DX: F10.10 Alcohol abuse, uncomplicated (principal); Y90.9 Presence of alcohol in blood, level not specified; R11.2 Nausea with vomiting, unspecified; F17.210 Nicotine dependence, cigarettes, uncomplicated; F14.90 Cocaine use, unspecified, uncomplicated
CPT/HCPCS: 36415; 80048; 80076; 83690; 85025; 96361; 96374; 96375; 96376; 99284; 99285; J2405

== ENCOUNTER 2021-01-30 01:15 | Emergency (ER) | payer MEDICAID, SELFPAY ==
[2021-01-30 01:35] VITALS: BP 145/88; PULSE 87; RESP 18; TEMP 36.6; O2SAT 99; BMI 24.4
--- NOTE | 2021-01-30 01:54 | ED_ITS ---
HPI - Wound/Laceration General Chief Complaint: Wound/Laceration Stated Complaint: lac on wrist Time Seen by Provider: 01/30/21 01:53 Source: patient Mode of arrival: ambulatory History of Present Illness HPI narrative: 20-year-old male who presents with a laceration due to a mirror 1 and half weeks ago and states that he has some localized numbness but is concerned that is infected. Otherwise, he denies any fevers or chills but states that he is having some difficulty with grasping. Related Data Previous Rx's Medication Instructions Recorded folic acid 1 mg tablet 1 mg PO DAILY #30 tab 06/05/20 thiamine HCl (vitamin B1) 100 mg 100 mg PO DAILY #30 tab 06/05/20 tablet ondansetron HCl 4 mg tablet 4 mg PO Q6H PRN #5 tab 11/11/20 (Zofran) Allergies Allergy/AdvReac Type Severity Reaction Status Date / Time No Known Allergies Allergy Verified 11/11/20 11:51 [No Known Allergies*] Review of Systems Review of Systems: Pertinent positives and negatives as stated in HPI 10 point review of systems is otherwise negative. [facility] Past Medical History Source: nursing notes reviewed Medical History No known health problems Family History Family History Other Family history non-contributory Social History Social History Household Members: Other Housing: Other Housing Other:: stays with girlfriend sometimes and grandmother sometimes Do you presently have visiting nurse or other home services: No Alcohol intake: current Alcohol intake frequency: other Alcohol type: beer and hard liquor Patient Tobacco Use Status: Current everyday Tobacco user Cigarette Packs Per Day: 1 Cigarettes Per Day: 20.0 Second Hand Smoke Exposure: Yes Substance Use Type: Crack/Cocaine Advance Directives: No Advance Directives Information Provided: Yes service: No Current occupational status: unemployed Physical Exam Vital Signs: Vital Signs: Last Vital Signs Temp 97.8 F 01/30/21 01:35 Pulse 87 01/30/21 01:35 Resp 18 01/30/21 01:35 BP 145/88 H 01/30/21 01:35 Pulse Ox 99 01/30/21 01:35 Body Mass Index 24.4 VITAL SIGNS: Reviewed. GENERAL: Well developed, well nourished, in no acute distress. HEAD: Normocephalic/atraumatic, EYES: PERRLA, EOMI OROPHARYNX: no oral lesions noted, posterior pharynx clear LUNGS: Normal breath sounds. No adventitious sounds or accessory muscle use. SpO2<99> CARDIOVASCULAR: Regular rate and rhythm without noted murmurs ABDOMEN: Soft, non-tender, non-distended with bowel sounds. RIGHT WRIST: There is a noted laceration to the ulnar side of the palmar aspect of the wrist that appears to be healing well, no evidence of infection but erythema that is noted appears to be secondary to the healing process and sensory is intact in the 4th and 5th digits, but hand grasp appears to be somewhat decreased, full range of motion at the wrist is intact SKIN: Inspection of the skin reveals no rashes NEUROLOGIC: Alert and oriented x 4. Course Course Course Narrative: This is a 20-year-old male with history and clinical pre sentation consistent with well-healing laceration and intact sensory, but possible minor injury to flexors is possible although not measurable at this time. Will provide patient with Tdap as well as initial antibiotics and provided referral to see hand surgery. All findings were discussed with the patient at bedside and he understands the plan. Discharge Plan Discharge Clinical Impression: Laceration of wrist, right, complicated, Decreased electric motor tester strength of right hand Patient Disposition: Home, Self-Care Instructions: Laceration Without Closure (ED) Additional Instructions: 1. Continue to cleanse the area with soap and water and apply [id number] bacitracin. 2. You have been provided with a referral to see Hand surgery below please call on Saturday morning for an appointment. 3. Please follow-up with your primary care provider in the next 1-2 days for re- evaluation Return to the ER for acute worsening of symptoms. Prescriptions: No Action ondansetron HCl [Zofran] 4 mg tablet 4 mg PO Q6H PRN (Reason: nausea and vomiting) Qty: 5 RF: 0 thiamine HCl (vitamin B1) 100 mg tablet 100 mg PO DAILY Qty: 30 RF: 0 folic acid 1 mg tablet 1 mg PO DAILY Qty: 30 RF: 0 Referrals: Marlin Grayson MD [Physician] - 2 days (Evaluation for patient with right hand laceration 1 and half weeks ago now complaint of decreased hand electric motor tester, well- healing laceration with no sensory deficits in ulnar distribution. Started on cephalexin.) Physician,Unknown [Primary Care Provider] - 2 days
[2021-01-30] MEDS: Diphth,Pertus(ACell),Tet Adult 0.5 ML SYRINGE IM (02:05)
[2021-01-30] MEDS: cephALEXin 500 MG CAPSULE PO (02:06)
== END 2021-01-30 02:09 | disposition home or self-care (01) ==
PROVIDERS: Emergency Provider Student in an Organized Health Care Education/Training Program
DX: S61.511D Laceration without foreign body of right wrist, subsequent encounter (principal); W26.8XXD Contact with other sharp object(s), not elsewhere classified, subsequent encounter; R53.1 Weakness
CPT/HCPCS: 90471; 90715; 99283; 99284

== ENCOUNTER 2021-04-28 23:03 | Emergency (ER) | payer MEDICAID, SELFPAY ==
[2021-04-28 23:14] VITALS: BP 155/95; PULSE 108; RESP 18; TEMP 36.6; O2SAT 98; BMI 26.4
[2021-04-28 23:18] VITALS: BP 143/93; PULSE 104; RESP 15; O2SAT 96
--- NOTE | 2021-04-28 23:28 | ED_ITS ---
HPI - Alcohol General Chief Complaint: ETOH/Substance Use <ZAKI Monsivais - Last Filed: 04/29/21 01:17> Stated Complaint: Alcohol withdrawls <ZAKI Monsivais - Last Filed: 04/29/21 01:17> Time Seen by Provider: 04/28/21 23:27 <ZKAI Monsivais - Last Filed: 04/29/21 01:17> Source: patient <ZAKI Monsivais - Last Filed: 04/29/21 01:17> Mode of arrival: ambulatory <ZAKI Monsivais - Last Filed: 04/29/21 01:17> Limitations: no limitations <ZAKI Monsivais - Last Filed: 04/29/21 01:17> History of Present Illness HPI narrative: 20-year-old male past medical history significant for alcohol use disorder presents to the emergency department with nausea, vomiting tremor is malaise in acute alcohol withdrawal. Patient states that his last drink was 2 days ago. He states he does not have a drink of choice, he typically drinks hard liquor until he passes out, he drinks throughout the day. He is unable to quantify how much he drinks on a daily basis. He states a lot . He has been heavily drinking for about 4 years. He has a history of alcohol withdrawal with seizures. He has required previous admission for alcohol withdrawal. Patient states he is trying to stop drinking. He has never had period of sobriety in the past 4 years. He states he has been vomiting all day today. In current he feels very nauseous. He denies changes in vision, chest pain, shortness of breath, abdominal pain, fevers, chills, headaches. He denies drug use, he states that he smokes tobacco regularly. Denies recent trauma/falls. Denies SI & HI. Denies auditory, visual and tactile hallucinations. <ZAKI Monsivais - Last Filed: 04/29/21 01:17> MD complaint: alcohol withdrawal and alcohol dependence <ZAKI Monsivais - Last Fi led: 04/29/21 01:17> Last drink: Days (ago) (2) <ZAKI Monsivais Last Filed: 04/29/21 01:17> Chronic alcohol use: Yes <ZAKI Monsivais Last Filed: 04/29/21 01:17> Previous visits for alcohol intoxication: Yes <ZAKI Monsivais Last Filed: 04/29/21 01:17> Recent trauma: No <ZAKI Monsivais Last Filed: 04/29/21 01:17> Associated symptoms: nausea, vomiting, diaphoresis and tremors <ZAKI Monsivais Last Filed: 04/29/21 01:17> Treatments prior to arrival: none <ZAKI Monsivais Last Filed: 04/29/21 01:17> Related Data Home Medications: Home Medications Medication Instructions Recorded Confirmed No Known Home Meds 04/29/21 04/29/21 <ZAKI Monsivais Last Filed: 04/29/21 01:17> Allergies/Adverse Reactions: Allergies Allergy/AdvReac Type Severity Reaction Status Date / Time No Known Allergies Allergy Verified 11/11/20 11:51 [No Known Allergies*] <ZAKI Monsivais Last Filed: 04/29/21 01:17> Review of Systems Review of Systems: Constitutional : No Weight loss, No Fever, No Chills, No Fatigue, No Malaise, + diaphoresis ENT/Mouth : No sore throat, No Rhinorrhea Eyes: No Eye Pain, No Swelling, No Redness Cardiovascular : No Chest Pain, No SOB, No Dyspnea on Exertion, No Orthopnea, No Edema, No Palpitations Respiratory : No Cough, No Sputum, No Wheezing Gastrointestinal : + Nausea, + Vomiting, No Diarrhea, No Constipation, No abdominal Pain, No Hematochezia, No Melena Genitourinary : No Dysuria, No Urinary Frequency, No Hematuria, Musculoskeletal : No joint pain, No Myalgias, No Joint Swelling Skin : No Skin Lesions, No rash Neuro : No Weakness, No Numbness, No Dizziness, No Headache, + tremors All other systems reviewed and are negative <ZAKI Monsivais Last Filed: 04/29/21 01:17> [facility] Past Medical History Attestation statement: The following information was validated with the patient. <ZAKI Monsivais Last Filed: 04/29/21 01:17> Source: old records reviewed and nursing notes reviewed <ZAKI Monsivais - Last Filed: 04/29/21 01:17> Medical History: Medical History No known health problems <ZAKI Monsivais - Last Filed: 04/29/21 01:17> Family History Family History: Family History Other Family history non-contributory <ZAKI Monsivais - Last Filed: 04/29/21 01:17> Social History Social History: Social History Household Members: Other Housing: Other Housing Other:: stays with girlfriend sometimes and grandmother sometimes Do you presently have visiting nurse or other home services: No Alcohol intake: current Alcohol intake frequency: 0-2 drinks per day Alcohol type: hard liquor Patient Tobacco Use Status: Current everyday Tobacco user Cigarette Packs Per Day: 1 Cigarettes Per Day: 20.0 Second Hand Smoke Exposure: Yes Use of substances other than those prescribed or required for medical reasons: No Substance Use Type: Crack/Cocaine Advance Directives: No service: No Current occupational status: unemployed <ZAKI Monsivais - Last Filed: 04/29/21 01:17> Physical Exam Vital Signs: Vital Signs: Last Vital Signs Temp 98.3 F 04/29/21 08:17 Pulse 79 04/29/21 08:17 Resp 20 04/29/21 08:17 BP 129/79 04/29/21 08:17 Pulse Ox 97 04/29/21 08:17 Body Mass Index 26.4 <ZAKI Monsivais - Last Filed: 04/29/21 01:17> Vital Signs: Last Vital Signs Temp 98.3 F 04/29/21 08:17 Pulse 79 04/29/21 08:17 Resp 20 04/29/21 08:17 BP 129/79 04/29/21 08:17 Pulse Ox 97 04/29/21 08:17 Body Mass Index 26.4 <ZAKI Pal - Last Filed: 04/29/21 18:46> Appearance: Alert.? Oriented X3.? No acute distress.?+diaphoresis Eyes: Pupils equal, round and reactive to light. Appear dilated. ? ENT: Pharynx normal.?+ tongue fasciculations Neck: Normal inspection.? Neck supple.? CVS: Normal heart rate and rhythm.? Pulses normal.? Respiratory: No respiratory distress.? Breath sounds normal.? Abdomen: Soft and nontender.? Skin: Skin warm and dry.? Normal skin color.? Normal skin turgor.?No Jaundice. Extremities: No lower extremity edema.? Neuro: Oriented X 3.? No motor deficit.? No sensory deficit. + Resting tremor of bilateral hands No asterixis CN 2- 12 intact <ZAKI Monsivais Last Filed: 04/29/21 01:17> Course Course Course Narrative: Patient seen and examined, agree with assessment and plan. <ZAKI Pal - Last Filed: 04/29/21 18:46> Reevaluation(s) Reevaluation #1: Per RN CIWA score of 5. When I calculated the score myself (used CIWA-Ar) and scored the patient a 10. Discrepancies likley due to time of evaluation. Will repeat CIWA after administration of ativan. <ZAKI Monsivais - Last Filed: 04/29/21 01:17> Time: 00:00 <ZAKI Monsivais - Last Filed: 04/29/21 01:17> Reevaluation #2: Patient's lab show no acute infection, no anemia and Mag low 1.3, no other electrolyte abnormalities. Patient is COVID negative. Ethanol less than 10. UA and urine tox pending. Patient's symptoms have slightly improved after administration of Ativan and Zofran. <ZAKI Monsivais Last Filed: 04/29/21 01:17> Time: 00:19 <ZAKI Monsivais Last Filed: 04/29/21 01:17> Reevaluation #3: Patient states he is feeling better after administration of Ativan, fluids and Zofran. Patient states he is still little bit nauseous however he feels significant improvement. Patient states he would like to stay here overnight, did speak to asset recovery specialist. Resting tremors have improved. Tongue fascicu lations improved. Patient no longer diaphoretic. Patient's significant other at the bedside. At this time physician observation will be initiated Physician observation started at 0109.? Patient placed in physician observation because the patient needed more time for medication to work and to see asset recovery specialist and be evaluated for the need for detox program.? At the time observation was started the patient's vitals were stable, patient is alert and oriented Neuro: nonfocal, CV RRR, Lungs clear <ZAKI Monsivais - Last Filed: 04/29/21 01:17> Time: 01:09 <ZAKI Monsivais - Last Filed: 04/29/21 01:17> Additional Reevaluation(s): 0111 Sign out will be given to Dr. Cárdenas. Pending evaluation by asset recovery specialist, to determine need for detox bed. <ZAKI Monsivais - Last Filed: 04/29/21 01 :17> MDM - Alcohol MDM Narrative Medical decision making narrative: 2332 20-year-old male past medical history significant for alcohol use disorder presents to the emergency department with nausea, vomiting tremor is malaise in acute alcohol withdrawal. Patient states that his last drink was 2 days ago. Patient is unable to quantify how much he drinks on a daily basis. He states he drinks whatever is in the house, he drinks until he passes out daily. He has been heavily drinking for 4 years. History of alcohol withdrawal seizures. He has previous admissions here for alcohol withdrawal. Denies SI/HI. Smokes cigarets. Denies other drug use. Denies auditory, visual and tactile hallucinations. Upon physical examination patient is sitting upright on the stretcher, he a ppears mildly diaphoretic, he has a resting bilateral tremor to upper extremities. There are also fasciculations of the tongue noted on exam. Pupils are equal, round, reactive to light bilaterally. They appear dilated. S1-S2 appreciated free of murmurs, a rapid regular rhythm at about 140 is noted on exam. Lungs are clear to auscultation bilaterally. Abdomen is soft nontender nondistended. No asterixis. No jaundice or scleral icterus. No focal neuro deficits. On exam this appears to be acute alcohol withdrawal a, there is little concern for hepatic encephalopathy patient is alert and oriented x3, no confusion, headaches or asterixis noted. Patient does not have any focal neuro deficits on exam. Plan at this time is to obtain basic labs, urine tox, ethanol, COVID patient will be given fluids, and Ativan. A CIWA will be calculated by RN His last admission here at [facility] for alcohol withdrawal was June 04, 2020 to June 05, 2020. During this admission he required phenobarb protocol. <ZAKI Monsivais - Last Filed: 04/29/21 01:17> Medical Records Attestation: I reviewed the patient's medical records. <ZAKI Monsivais - Last Filed: 04/29/21 01:17> Lab Data Attestation: I reviewed the patient's lab results. <ZAKI Monsivais - Last Filed: 04/29/21 01:17> Result diagrams: : 04/28/21 23:51 04/28/21 23:51 <ZAKI Monsivais - Last Filed: 04/29/21 01:17> Labs: Lab Results 04/28/21 04/28/21 04/28/21 Range/Units 23:51 23:51 23:51 WBC 7.8 (4.8-10.8) X10*3/uL RBC 4.95 (4.60-5.80) X10*6/uL Hgb 15.8 (14.0-18.0) g/dl Hct 45.5 (42.0-52.0) % MCV 91.9 (80.0-98.0) fL MCH 31.9 (27.0-33.0) pg MCHC 34.7 (31.0-36.0) g/dl RDW 13.8 (11.0-16.0) % Plt Count 245 (160-400) X10*3/uL MPV 9.6 (9.4-12.4) fL Immature Gran % (Auto) 0.1 (0.0-0.4) % Neut % (Auto) 67.6 (45-73) % Lymph % (Auto) 21.0 (20-40) % Russell % (Auto) 7.6 (2-11) % Eos % (Auto) 2.9 (0-4) % Baso % (Auto) 0.8 (0-2) % Lymph # (Auto) 1.6 (1.2-4.9) X10*3/uL Russell # (Auto) 0.6 (0.1-1.2) X10*3/uL Eos # (Auto) 0.2 (0.0-0.4) X10*3/uL Baso # (Auto) 0.1 (0.0-0.2) X10*3/uL Abs Immat Gran (auto) 0.01 (0.00-0.03) X10*3/uL Absolute Neuts (auto) 5.3 (2.0-8.3) x10*3/uL Absolute Nucleated RBC 0.000 (0.0-0.012) X10*3/uL Nucleated RBC % (auto) 0.0 (0.0-0.2) /100WBC Sodium 139 (135-145) mmol/L Potassium 3.4 D (3.3-5.1) mmol/L Chloride 97 (96-108) mmol/L Carbon Dioxide 31 H (22-29) mmol/L Anion Gap 14 (12-20) BUN 5 L D (9-16) mg/dL Creatinine 1.01 (0.5-1.4) mg/dL Estim Creat Clear Calc 125.9 Estimated GFR > 60 Random Glucose 99 (60-115) mg/dL Calcium 9.6 (8.4-10.2) mg/dL Magnesium 1.3 L* (1.6-2.6) mg/dL Total Bilirubin 0.9 (0.0-1.0) mg/dL AST 33 (5-37) U/L ALT 28 (0-40) U/L Alkaline Phosphatase 98 D (39-117) U/L Total Protein 7.8 (6.5-8.0) g/dL Albumin 4.8 (3.5-5.0) g/dL Urine Color Urine Appearance Urine pH (5.0-8.0) Ur Specific [place] (1.005-1.025) Urine Protein (NEG-TRACE) MG/DL Urine Glucose (UA) (NEG) MG/DL Urine Ketones (NEG) MG/DL Urine Blood (NEG) Urine Nitrite (NEG) Ur Leukocyte Esterase (NEG) Urine RBC (0) /HPF Urine WBC (0-4) /HPF Ur Squamous Epith Cells /LPF Urine Bacteria /LPF Urine Opiates Screen (Not Detect) Urine Fentanyl Screen (Not Detect) Ur Barbiturates Screen (Not Detect) Ur Phencyclidine Scrn (Not Detect) Ur Amphetamines Screen (Not Detect) U Benzodiazepines Scrn (Not Detect) Urine Cocaine Screen (Not Detect) U Marijuana (THC) Screen (Not Detect) Ethyl Alcohol mg/dL COVID-19 (COCNHA) Negative (Negative) COVID-19 Clin Com See Note 04/28/21 04/29/21 04/29/21 Range/Units 23:51 08:16 08:16 WBC (4.8-10.8) X10*3/uL RBC (4.60-5.80) X10*6/uL Hgb (14.0-18.0) g/dl Hct (42.0-52.0) % MCV (80.0-98.0) fL MCH (27.0-33.0) pg MCHC (31.0-36.0) g/dl RDW (11.0-16.0) % Plt Count (160-400) X10*3/uL MPV (9.4-12.4) fL Immature Gran % (Auto) (0.0-0.4) % Neut % (Auto) (45-73) % Lymph % (Auto) (20-40) % Russell % (Auto) (2-11) % Eos % (Auto) (0-4) % Baso % (Auto) (0-2) % Lymph # (Auto) (1.2-4.9) X10*3/uL Russell # (Auto) (0.1-1.2) X10*3/uL Eos # (Auto) (0.0-0.4) X10*3/uL Baso # (Auto) (0.0-0.2) X10*3/uL Abs Immat Gran (auto) (0.00-0.03) X10*3/uL Absolute Neuts (auto) (2.0-8.3) x10*3/uL Absolute Nucleated RBC (0.0-0.012) X10*3/uL Nucleated RBC % (auto) (0.0-0.2) /100WBC Sodium (135-145) mmol/L Potassium (3.3-5.1) mmol/L Chloride (96-108) mmol/L Carbon Dioxide (22-29) mmol/L Anion Gap (12-20) BUN (9-16) mg/dL Creatinine (0.5-1.4) mg/dL Estim Creat Clear Calc Estimated GFR Random Glucose (60-115) mg/dL Calcium (8.4-10.2) mg/dL Magnesium (1.6-2.6) mg/dL Total Bilirubin (0.0-1.0) mg/dL AST (5-37) U/L ALT (0-40) U/L Alkaline Phosphatase (39-117) U/L Total Protein (6.5-8.0) g/dL Albumin (3.5-5.0) g/dL Urine Color YELLOW Urine Appearance CLEAR Urine pH 7.0 (5.0-8.0) Ur Specific [place] 1.015 (1.005-1.025) Urine Protein TRACE (NEG-TRACE) MG/DL Urine Glucose (UA) NEG (NEG) MG/DL Urine Ketones NEG (NEG) MG/DL Urine Blood NEG (NEG) Urine Nitrite NEG (NEG) Ur Leukocyte Esterase NEG (NEG) Urine RBC 0-2 (0) /HPF Urine WBC 0-2 (0-4) /HPF Ur Squamous Epith Cells TRACE /LPF Urine Bacteria NONE /LPF Urine Opiates Screen Not Detected (Not Detect) Urine Fentanyl Screen Not Detected (Not Detect) Ur Barbiturates Screen Not Detected (Not Detect) Ur Phencyclidine Scrn Not Detected (Not Detect) Ur Amphetamines Screen Not Detected (Not Detect) U Benzodiazepines Scrn Not Detected (Not Detect) Urine Cocaine Screen Not Detected (Not Detect) U Marijuana (THC) Screen POSITIVE H (Not Detect) Ethyl Alcohol < 10 mg/dL COVID-19 (CONCHA) (Negative) COVID-19 Clin Com <ZAKI Monsivais - Last Filed: 04/29/21 01:17> Lab Results 04/28/21 04/28/21 04/28/21 Range/Units 23:51 23:51 23:51 WBC 7.8 (4.8-10.8) X10*3/uL RBC 4.95 (4.60-5.80) X10*6/uL Hgb 15.8 (14.0-18.0) g/dl Hct 45.5 (42.0-52.0) % MCV 91.9 (80.0-98.0) fL MCH 31.9 (27.0-33.0) pg MCHC 34.7 (31.0-36.0) g/dl RDW 13.8 (11.0-16.0) % Plt Count 245 (160-400) X10*3/uL MPV 9.6 (9.4-12.4) fL Immature Gran % (Auto) 0.1 (0.0-0.4) % Neut % (Auto) 67.6 (45-73) % Lymph % (Auto) 21.0 (20-40) % Russell % (Auto) 7.6 (2-11) % Eos % (Auto) 2.9 (0-4) % Baso % (Auto) 0.8 (0-2) % Lymph # (Auto) 1.6 (1.2-4.9) X10*3/uL Russell # (Auto) 0.6 (0.1-1.2) X10*3/uL Eos # (Auto) 0.2 (0.0-0.4) X10*3/uL Baso # (Auto) 0.1 (0.0-0.2) X10*3/uL Abs Immat Gran (auto) 0.01 (0.00-0.03) X10*3/uL Absolute Neuts (auto) 5.3 (2.0-8.3) x10*3/uL Absolute Nucleated RBC 0.000 (0.0-0.012) X10*3/uL Nucleated RBC % (auto) 0.0 (0.0-0.2) /100WBC Sodium 139 (135-145) mmol/L Potassium 3.4 D (3.3-5.1) mmol/L Chloride 97 (96-108) mmol/L Carbon Dioxide 31 H (22-29) mmol/L Anion Gap 14 (12-20) BUN 5 L D (9-16) mg/dL Creatinine 1.01 (0.5-1.4) mg/dL Estim Creat Clear Calc 125.9 Estimated GFR > 60 Random Glucose 99 (60-115) mg/dL Calcium 9.6 (8.4-10.2) mg/dL Magnesium 1.3 L* (1.6-2.6) mg/dL Total Bilirubin 0.9 (0.0-1.0) mg/dL AST 33 (5-37) U/L ALT 28 (0-40) U/L Alkaline Phosphatase 98 D (39-117) U/L Total Protein 7.8 (6.5-8.0) g/dL Albumin 4.8 (3.5-5.0) g/dL Urine Color Urine Appearance Urine pH (5.0-8.0) Ur Specific [place] (1.005-1.025) Urine Protein (NEG-TRACE) MG/DL Urine Glucose (UA) (NEG) MG/DL Urine Ketones (NEG) MG/DL Urine Blood (NEG) Urine Nitrite (NEG) Ur Leukocyte Esterase (NEG) Urine RBC (0) /HPF Urine WBC (0-4) /HPF Ur Squamous Epith Cells /LPF Urine Bacteria /LPF Urine Opiates Screen (Not Detect) Urine Fentanyl Screen (Not Detect) Ur Barbiturates Screen (Not Detect) Ur Phencyclidine Scrn (Not Detect) Ur Amphetamines Screen (Not Detect) U Benzodiazepines Scrn (Not Detect) Urine Cocaine Screen (Not Detect) U Marijuana (THC) Screen (Not Detect) Ethyl Alcohol mg/dL COVID-19 (CONCHA) Negative (Negative) COVID-19 Clin Com See Note 04/28/21 04/29/21 04/29/21 Range/Units 23:51 08:16 08:16 WBC (4.8-10.8) X10*3/uL RBC (4.60-5.80) X10*6/uL Hgb (14.0-18.0) g/dl Hct (42.0-52.0) % MCV (80.0-98.0) fL MCH (27.0-33.0) pg MCHC (31.0-36.0) g/dl RDW (11.0-16.0) % Plt Count (160-400) X10*3/uL MPV (9.4-12.4) fL Immature Gran % (Auto) (0.0-0.4) % Neut % (Auto) (45-73) % Lymph % (Auto) (20-40) % Russell % (Auto) (2-11) % Eos % (Auto) (0-4) % Baso % (Auto) (0-2) % Lymph # (Auto) (1.2-4.9) X10*3/uL Russell # (Auto) (0.1-1.2) X10*3/uL Eos # (Auto) (0.0-0.4) X10*3/uL Baso # (Auto) (0.0-0.2) X10*3/uL Abs Immat Gran (auto) (0.00-0.03) X10*3/uL Absolute Neuts (auto) (2.0-8.3) x10*3/uL Absolute Nucleated RBC (0.0-0.012) X10*3/uL Nucleated RBC % (auto) (0.0-0.2) /100WBC Sodium (135-145) mmol/L Potassium (3.3-5.1) mmol/L Chloride (96-108) mmol/L Carbon Dioxide (22-29) mmol/L Anion Gap (12-20) BUN (9-16) mg/dL Creatinine (0.5-1.4) mg/dL Estim Creat Clear Calc Estimated GFR Random Glucose (60-115) mg/dL Calcium (8.4-10.2) mg/dL Magnesium (1.6-2.6) mg/dL Total Bilirubin (0.0-1.0) mg/dL AST (5-37) U/L ALT (0-40) U/L Alkaline Phosphatase (39-117) U/L Total Protein (6.5-8.0) g/dL Albumin (3.5-5.0) g/dL Urine Color YELLOW Urine Appearance CLEAR Urine pH 7.0 (5.0-8.0) Ur Specific [place] 1.015 (1.005-1.025) Urine Protein TRACE (NEG-TRACE) MG/DL Urine Glucose (UA) NEG (NEG) MG/DL Urine Ketones NEG (NEG) MG/DL Urine Blood NEG (NEG) Urine Nitrite NEG (NEG) Ur Leukocyte Esterase NEG (NEG) Urine RBC 0-2 (0) /HPF Urine WBC 0-2 (0-4) /HPF Ur Squamous Epith Cells TRACE /LPF Urine Bacteria NONE /LPF Urine Opiates Screen Not Detected (Not Detect) Urine Fentanyl Screen Not Detected (Not Detect) Ur Barbiturates Screen Not Detected (Not Detect) Ur Phencyclidine Scrn Not Detected (Not Detect) Ur Amphetamines Screen Not Detected (Not Detect) U Benzodiazepines Scrn Not Detected (Not Detect) Urine Cocaine Screen Not Detected (Not Detect) U Marijuana (THC) Screen POSITIVE H (Not Detect) Ethyl Alcohol < 10 mg/dL COVID-19 (CONCHA) (Negative) COVID-19 Clin Com <ZAKI Pal - Last Filed: 04/29/21 18:46> ECG Data ECG #1: Attestation: I personally reviewed and interpreted this ECG as follows: <ZAKI Monsivais - Last Filed: 04/29/21 01:17> ECG interpretation date: 04/29/21 <ZAKI Monsivais - Last Filed: 04/29/21 01:17> ECG interpretation time: 00:24 <ZAKI Monsivais - Last Filed: 04/29/21 01:17> Prior ECG tracings: available for review <ZAKI Monsivais - Last Filed: 04/29/21 01:17> Interpretation: Ventricular rate of 77, ND interval normal, QRS normal QT/QTC normal. EKG shows sinus rhythm with marked sinus arrhythmia. No ST elevations or depressions. No acute ischemia. No acute changes when compared to EKG from June 09, 2020. <ZAKI Monsivais - Last Filed: 04/29/21 01:17> Critical Care Time Critical Care Time Critical Care Time: No <ZAKI Monsivais Last Filed: 04/29/21 01:17> Discharge Plan Discharge Clinical Impression: Alcohol intoxication <ZAKI Monsivais - Last Filed: 04/29/21 01:17> Patient Disposition: Home, Self-Care <ZAKI Monsivais Last Filed: 04/29/21 01:17> Instructions: Alcohol Intoxication (ED), Abuse of Alcohol (ED) <ZAKI Monsivais - Last Filed: 04/29/21 01:17> Prescriptions: No Action No Known Home Meds RF: 0 <ZAKI Monsivais - Last Filed: 04/29/21 01:17> Referrals: Physician,None [Primary Care Provider] - 2 days (Please go to detox. Please stop drinking alcohol.) <ZAKI Monsivais - Last Filed: 04/29/21 01:17> Interventions: ED Discharge Assessment Last Done: 04/29/21 08:50 <ZAKI Monsivais - Last Filed: 04/29/21 01:17> Discharge Date/Time: 04/29/21 08:51 <ZAKI Monsivais - Last Filed: 04/29/21 01:17>
--- NOTE | 2021-04-28 23:30 | ECG_ITS ---
Test Reason : etoh Blood Pressure : / mmHG Vent. Rate : 077 BPM Atrial Rate : 077 BPM P-R Int : 162 ms QRS Dur : 094 ms QT Int : 394 ms P-R-T Axes : 072 072 049 degrees QTc Int : 445 ms Sinus rhythm with marked sinus arrhythmia Otherwise normal ECG When compared with ECG of 09-JUN-2020 18:36, No significant change was found Referred By: Rodolfo Flores Electronically Signed By:ROXANA LING MD
[2021-04-28 23:57] LABS: MANUAL DIFF FLAG NO
[2021-04-28 23:58] LABS: Basophils Absolute Auto 0.1 X10*3/uL (0.0-0.2); Basophils Percent Auto 0.8 % (0-2); Eosinophils Absolute Auto 0.2 X10*3/uL (0.0-0.4); Eosinophils Percent Auto 2.9 % (0-4); Hematocrit 45.5 % (42.0-52.0); Hemoglobin 15.8 g/dl (14.0-18.0); Imm Gran Abs Auto 0.01 X10*3/uL (0.00-0.03); Imm Gran Pct Auto 0.1 % (0.0-0.4); Lymphocytes Absolute Auto 1.6 X10*3/uL (1.2-4.9); Mean Corpuscular HGB Conc 34.7 g/dl (31.0-36.0); Mean Corpuscular Hemoglobin 31.9 pg (27.0-33.0); Mean Corpuscular Volume 91.9 fL (80.0-98.0); Mean Platelet Volume 9.6 fL (9.4-12.4); Monocytes Absolute Auto 0.6 X10*3/uL (0.1-1.2); Monocytes Percent Auto 7.6 % (2-11); Neutrophils Absolute Auto 5.3 x10*3/uL (2.0-8.3); Neutrophils Percent Auto 67.6 % (45-73); Platelet Count 245 X10*3/uL (160-400); Red Blood Count 4.95 X10*6/uL (4.60-5.80); Red Cell Distribution Width 13.8 % (11.0-16.0); White Blood Count 7.8 X10*3/uL (4.8-10.8)
[2021-04-29] VITALS: BP 140/75; PULSE 73; RESP 16; O2SAT 100
[2021-04-29] MEDS: 0.9 % Sodium Chloride 1,000 ML 999 ML IV (00:01)
[2021-04-29] MEDS: LORazepam 2 MG/ML VIAL IVPUSH (00:01)
[2021-04-29] MEDS: ondansetron HCL 4 MG/2 ML VIAL IVPUSH (00:04)
[2021-04-29 00:10] LABS: COVID-19 Test Negative (Negative)
[2021-04-29 00:11] LABS: Ethanol < 10 mg/dL
[2021-04-29 00:16] LABS: Alanine Aminotransferase 28 U/L (0-40); Albumin Level 4.8 g/dL (3.5-5.0); Alkaline Phosphatase 98 U/L (39-117); Anion Gap 14 (12-20); Aspartate Amino Transferase 33 U/L (5-37); Bilirubin Total 0.9 mg/dL (0.0-1.0); Blood Urea Nitrogen 5 mg/dL (9-16); Calcium 9.6 mg/dL (8.4-10.2); Carbon Dioxide 31 mmol/L (22-29); Chloride 97 mmol/L (96-108); Creatinine Clr Calc Pharmacy 125.9; Estimated Glomerular Filt Rate > 60; Glucose Random 99 mg/dL (60-115); Magnesium 1.3 mg/dL (1.6-2.6); Potassium 3.4 mmol/L (3.3-5.1); Sodium 139 mmol/L (135-145); Total Protein 7.8 g/dL (6.5-8.0)
[2021-04-29] MEDS: Magnesium Sulfate/H2O 2 GM/50 ML PIGGYBACK IV (00:40)
[2021-04-29 04:14] VITALS: BP 120/65; PULSE 75; RESP 20; O2SAT 98
[2021-04-29 06:01] VITALS: PULSE 75; RESP 16; O2SAT 98
[2021-04-29 08:17] VITALS: BP 129/79; PULSE 79; RESP 20; TEMP 36.8; O2SAT 97
--- NOTE | 2021-04-29 08:25 | PHA.MEDREC ---
Pharmacy Consult ? Medication Reconciliation Med rec completed by nursing, verified by pharmacy. Thanks Aurea SzymanskiD
[2021-04-29 08:29] LABS: Appearance Urine CLEAR; Color Urine YELLOW; Glucose Urine UA NEG (NEG); Leukocyte Esterase Urine NEG (NEG); Nitrite Urine NEG (NEG); Specific Gravity - Urine 1.015 (1.005-1.025); Urine Blood NEG (NEG); Urine Ketones NEG (NEG); Urine Protein TRACE MG/DL (NEG-TRACE)
[2021-04-29] MEDS: Ondansetron ODT 4 MG TAB.RAPDIS TRANSLINGU (08:37)
[2021-04-29 08:44] LABS: RBC Urine 0-2 /HPF (0); Squamous Epithelial Cell Urine TRACE /LPF; WBC Urine 0-2 /HPF (0-4)
--- NOTE | 2021-04-29 08:44 | MHC.RECOVSUP ---
Recovery Support note: Patient is a 20 year old Palauan speaking male who presented to [facility] ED due to alcohol withdrawal. This leader writer met with patient to discuss his alcohol use and treatment options. Patient was unable to quantify his alcohol consumption. Reports he drinks whatever he can get his hands on until he blacks out. Patient expressed interest in maintaining abstinence and was receptive to outpatient supports. Discussed [facility], IOP and outpatient therapy. Patient is requesting a referral to [facility] at this time. Discussed inpatient detox with patient. Patient reports he has a lot going on and does not want to be without his phone. Discussed the risk of alcohol withdrawal and patient acknowledged. Encouraged patient to return to the ED if symptoms worsen or go to a detox facility. ATS facility list provided. Discussed case with patient's ED provider. [facility] referral sent via email.
[2021-04-29 09:04] LABS: Amphetamine Screen Urine Not Detected (Not Detect); Barbiturates, Urine Not Detected (Not Detect); Benzodiazepines Screen Urine Not Detected (Not Detect); Cannabinoid Screen Urine POSITIVE (Not Detect); Cocaine Screen Urine Not Detected (Not Detect); Fentanyl, urine Not Detected (Not Detect); Opiate Screen Urine Not Detected (Not Detect); Phencyclidine Screen Urine Not Detected (Not Detect)
== END 2021-04-29 08:51 | disposition home or self-care (01) ==
PROVIDERS: Physician Assistant; Emergency Provider Internal Medicine
DX: F10.229 Alcohol dependence with intoxication, unspecified (principal); Y90.0 Blood alcohol level of less than 20 mg/100 ml; Z20.822 Contact with and (suspected) exposure to COVID-19
CPT/HCPCS: 36415; 80053; 80307; 81001; 82077; 83735; 85025; 87635; 93005; 96361; 96365; 96366; 96375; 96376; 99285; J2060; J2405; J3475

== ENCOUNTER 2023-10-30 03:32 | Emergency (ER) | payer MEDICAID, SELFPAY ==
[2023-10-30 03:40] VITALS: BP 133/80; PULSE 111; RESP 18; TEMP 36.7; O2SAT 97; BMI 27.1
[2023-10-30 04:06] LABS: IDNOW Serial# 08D9AD1C; Strep A Nucleic Acid Negative (Negative)
[2023-10-30 04:29] LABS: Influenza A PCR NEGATIVE (Negative); Influenza B PCR NEGATIVE (Negative); Resp Syncy Virus RNA Qual PCR NEGATIVE (Negative); SARS COV2 PCR INHOUSE NEGATIVE (Negative)
[2023-10-30 05:29] VITALS: BP 129/78; PULSE 96; RESP 17; TEMP 36.9; O2SAT 97
--- NOTE | 2023-10-30 05:51 | ED_ITS ---
HPI - General Adult General Chief complaint: General Medical Stated complaint: SoB Time Seen by Provider: 10/30/23 05:43 Source: patient Mode of arrival: ambulatory Limitations: no limitations History of Present Illness HPI narrative: 23 yo male with PMH of ETOH abuse and withdrawal seizures but 2+ years ago. He just [facility] of [facility] and has been drinking hard for 1 month and now has viral like illness after COVID exposure not vaccinated. He also reports he is in withdrawal from alcohol reports n/v and throwing up bile feels shaky. He does not want rehab or detox states he needs to go to work. MD complaint: viral syndrome, ETOH abuse Onset (ago): day(s) (2) Location: abdomen Radiation: non-radiation Severity: moderate Pain Consistency: intermittent Relieving factors: none Exacerbating factors: eating Associated symptoms: loss of appetite, malaise and nausea/vomiting Treatments prior to arrival: none Related Data Previous Rx's ?Medication ?Instructions ?Recorded chlordiazepoxide HCl 25 mg capsule 25 mg PO Q3H PRN alcohol 10/30/23 withdrawal 12 doses #12 caps ondansetron 4 mg disintegrating 4 mg PO Q8H PRN nausea and 10/30/23 tablet vomiting #20 tabs Allergies Allergy/AdvReac Type Severity Reaction Status Date / Time No Known Allergies Allergy Verified 10/30/23 03:42 [No Known Allergies*] Review of Systems 2 Review of Systems: Constitutional : No Weight loss, No Fever, pos Chills ENT/Mouth : No sore throat, No Rhinorrhea Eyes: No Swelling, No Redness Cardiovascular : No Chest Pain, No SOB, NoEdema Respiratory : No Cough, No Sputum, No Wheezing Gastrointestinal : Positive Nausea, Positive Vomiting, no Diarrhea, no abdominal Pain, No Hematochezia, No Melena Genitourinary : No Dysuria, No Urinary Frequency, No Hematuria, No Urgency Musculoskeletal : No joint pain, No Myalgias, No Joint Swelling Skin : No Skin Lesions, No rash Neuro : pos Weakness, No Numbness, No Dizziness, No Headache Psych : pos Anxiety/Panic, No Depression All other systems reviewed and are negative. [facility] Past Medical History Attestation statement: The following information was validated with the patient. Source: old records reviewed Medical History Alcohol withdrawal seizure Alcohol use disorder Family History Family History Other Family history non-contributory Social History Social History Household Members: Other Housing: Other Housing Other:: stays with girlfriend sometimes and grandmother sometimes Do you presently have visiting nurse or other home services: No Alcohol intake: current Alcohol intake frequency: 0-2 drinks per day Alcohol type: hard liquor Patient Tobacco Use Status: Current everyday Tobacco user Cigarette Packs Per Day: 1 Cigarettes Per Day: 20.0 Smoked in Last 30 Days: Yes Second Hand Smoke Exposure: Yes Use of substances other than those prescribed or required for medical reasons: Yes Substance Use Type: Crack/Cocaine Substance Use Frequency: Chronic Longstanding Advance Directives: No Advance Directives Information Provided: No Do you have a plan to hurt others: No Plan service: No Current occupational status: unemployed Physical Exam ED Vital Signs: Vital Signs - 24 hr 10/30/23 03:40 10/30/23 05:29 Temperature 98.0 F 98.4 F Pulse Rate 111 H 96 Respiratory Rate 18 17 Blood Pressure 133/80 129/78 Pulse Oximetry 97 97 Oxygen Delivery Method Room Air Room Air BMI result Body Mass Index 27.1 Appearance: Alert. Oriented X3. No acute distress. Eyes: Pupils equal, round and reactive to light. ENT: Pharynx mildly dry MM no tongue fasciculations Neck: Normal inspection. Neck supple. CVS: Normal heart rate and rhythm. Pulses normal. Respiratory: No respiratory distress. Breath sounds normal. Abdomen: Soft and nontender. Skin: Skin warm and dry. Normal skin color. Normal skin turgor. Extremities: No lower extremity edema. No calf ttp Neuro: Oriented X 3. No motor deficit. No sensory deficit. no tremors Course Course Course Narrative: signed out to Dr. Price pending reassessment Medications Administered Generic Name Dose Route Start Last Admin Trade Name Freq PRN Reason Stop Dose Admin Sodium Chloride 1,000 mls @ 999 mls/hr 10/30/23 06:04 10/30/23 06:22 Ns IV 10/30/23 07:04 999 mls/hr .Q1H1M ONE Administration Sodium Chloride 1,000 mls @ 999 mls/hr 10/30/23 06:04 10/30/23 06:22 Ns IV 10/30/23 07:04 999 mls/hr .Q1H1M ONE Administration Discontinued Medications Generic Name Dose Route Start Last Admin Trade Name Judith PRN Reason Stop Dose Admin Thiamine HCl 200 mg/ Sodium 102 mls @ 204 mls/hr 10/30/23 06:04 10/30/23 06:22 Chloride IV 10/30/23 06:33 204 mls/hr ONCE ONE Administration Lorazepam 2 mg 10/30/23 06:04 10/30/23 06:22 Lorazepam 2 Mg/Ml Vial IVPUSH 10/30/23 06:05 2 mg ONCE ONE Administration Ondansetron HCl 4 mg 10/30/23 06:04 10/30/23 06:22 Ondansetron Hcl 4 Mg/2 Ml Vial IVPUSH 10/30/23 06:05 4 mg ONCE ONE Administration Medical Decision Making Medical Decision Making [facility] Narrative: 23 yo male with hx of ETOH use and 2+ years ago withdrawal seizure here with viral illness after COVID exposure but also c/o feeling he is in ETOH withdrawal though clinically looks well at this time will need basic labs, IVF x 2L, IV ativan and thiamine. He does not want detox or rehab he wants to go home. Will PO challenge Differential Diagnosis Differential Diagnoses: The differential diagnosis associated with the presentation includes viral syndrome, gastritis, etoh abuse he has no autonomic dysfunction or signs of clinical withdrawal like tremors Admission/Observation Consideration of admission/observation: Escalation of care including admission/observation considered anticipate he will feel better and once able to tolerate PO can be DC home Lab Data [facility] Lab Attestation statement: I reviewed the patient's lab results. 10/30/23 06:15 10/30/23 06:15 Labs: Lab Results 10/30/23 10/30/23 Range/Units 03:47 06:15 WBC 10.4 (4.8-10.8) X10*3/uL RBC 5.12 (4.60-5.80) X10*6/uL Hgb 16.3 (14.0-18.0) g/dl Hct 46.7 (42.0-52.0) % MCV 91.2 (80.0-98.0) fL MCH 31.8 (27.0-33.0) pg MCHC 34.9 (31.0-36.0) g/dl RDW 14.6 (11.0-16.0) % Plt Count 317 D (160-400) X10*3/uL MPV 10.1 (9.4-12.4) fL Immature Gran % (Auto) 0.9 H (0.0-0.4) % Neut % (Auto) 57.7 (45-73) % Lymph % (Auto) 33.0 (20-40) % [place] % (Auto) 6.4 (2-11) % Eos % (Auto) 1.2 (0-4) % Baso % (Auto) 0.8 (0-2) % Lymph # (Auto) 3.4 (1.2-4.9) X10*3/uL [place] # (Auto) 0.7 (0.1-1.2) X10*3/uL Eos # (Auto) 0.1 (0.0-0.4) X10*3/uL Baso # (Auto) 0.1 (0.0-0.2) X10*3/uL Abs Immat Gran (auto) 0.09 H (0.00-0.03) X10*3/uL Absolute Neuts (auto) 6.0 (2.0-8.3) x10*3/uL Absolute Nucleated RBC 0.000 (0.0-0.012) X10*3/uL Nucleated RBC % (auto) 0.0 (0.0-0.2) /100WBC Sodium 147 H (135-145) mmol/L Potassium 3.7 (3.3-5.1) mmol/L Chloride 108 (96-108) mmol/L Carbon Dioxide 25 (22-29) mmol/L Anion Gap 18 (12-20) BUN 6 L (9-16) mg/dL Creatinine 1.00 (0.5-1.4) mg/dL Estim Creat Clear Calc 123.9 Estimated GFR > 60 Random Glucose 102 (60-115) mg/dL Calcium 9.0 D (8.4-10.2) mg/dL Magnesium 2.3 (1.6-2.6) mg/dL Total Bilirubin 0.2 (0.0-1.0) mg/dL Direct Bilirubin < 0.2 (0.0-0.5) mg/dL AST 38 H (5-37) U/L ALT 36 (0-40) U/L Alkaline Phosphatase 77 (39-117) U/L Total Protein 7.4 (6.5-8.0) g/dL Albumin 4.4 (3.5-5.0) g/dL Lipase 55 (8-78) U/L Influenza Type A (PCR) NEGATIVE (Negative) Influenza Type B (PCR) NEGATIVE (Negative) RSV RNA Qual (PCR) NEGATIVE (Negative) SARS-CoV-2 RNA (RT-PCR) NEGATIVE (Negative) S. pyogenes GrpA LULY Negative (Negative) Independent Historian Clinical information obtained from an independent historian. History obtained from or confirmed by: Spouse External Record Review External record reviewed: Inpatient record Prescription Management I considered prescription management with: Other Discharge Plan Discharge Clinical Impression: Alcohol use disorder, Acute viral syndrome Patient Disposition: Still a Patient Instructions: Viral Syndrome (ED), Alcohol Use Disorder (ED) Additional Instructions: you were mildly dehydrated and your liver enzymes were stable compared to prior tests. you can follow up with our comprehensive care clinic [phone] [place] [id number] Prescriptions: New ondansetron 4 mg tablet,disintegrating 4 mg PO Q8H PRN (Reason: nausea and vomiting) Qty: 20 0RF chlordiazepoxide HCl 25 mg capsule 25 mg PO Q3H PRN (Reason: alcohol withdrawal) Qty: 12 0RF Rx Instructions: until symptoms controlled Stand Alone Forms: Work/School Release Print Language: Romanian
[2023-10-30 06:20] LABS: MANUAL DIFF FLAG NO
[2023-10-30] MEDS: Thiamine HCL 200 MG in 0.9 % Sodium Chloride 100 ML 204 MG IV (06:22)
[2023-10-30] MEDS: ondansetron HCL 4 MG/2 ML VIAL IVPUSH (06:22)
[2023-10-30] MEDS: 0.9 % Sodium Chloride 1,000 ML 999 ML IV ×2 (06:22)
[2023-10-30] MEDS: LORazepam 2 MG/ML VIAL IVPUSH (06:22)
[2023-10-30 06:24] LABS: Basophils Absolute Auto 0.1 X10*3/uL (0.0-0.2); Basophils Percent Auto 0.8 % (0-2); Eosinophils Absolute Auto 0.1 X10*3/uL (0.0-0.4); Eosinophils Percent Auto 1.2 % (0-4); Hematocrit 46.7 % (42.0-52.0); Hemoglobin 16.3 g/dl (14.0-18.0); Imm Gran Abs Auto 0.09 X10*3/uL (0.00-0.03); Imm Gran Pct Auto 0.9 % (0.0-0.4); Lymphocytes Absolute Auto 3.4 X10*3/uL (1.2-4.9); Mean Corpuscular HGB Conc 34.9 g/dl (31.0-36.0); Mean Corpuscular Hemoglobin 31.8 pg (27.0-33.0); Mean Corpuscular Volume 91.2 fL (80.0-98.0); Mean Platelet Volume 10.1 fL (9.4-12.4); Monocytes Absolute Auto 0.7 X10*3/uL (0.1-1.2); Monocytes Percent Auto 6.4 % (2-11); Neutrophils Percent Auto 57.7 % (45-73); Platelet Count 317 X10*3/uL (160-400); Red Blood Count 5.12 X10*6/uL (4.60-5.80); Red Cell Distribution Width 14.6 % (11.0-16.0); White Blood Count 10.4 X10*3/uL (4.8-10.8)
--- NOTE | 2023-10-30 06:34 | PC.NURSE ---
pt verbalizing 5/10 generalized body pain and n/v at this time. pt states last drink was [employer] (half pint of laura). pt verbalizes that this is his daily intake. hx of alcohol withdrawal. pt states 1 seizure in the past d/t withdrawal. CIWA = 5. 20gIV placed in the right AC - labs obtained/sent to lab. IVF/medication administered per provider order. effectiveness pending. pt seen by ED provider/aware of plan of care moving forward. no sob/wob noted. respirations even and unlabored. partner bedside for support. call moses placed within reach.
[2023-10-30 06:37] LABS: Alanine Aminotransferase 36 U/L (0-40); Albumin Level 4.4 g/dL (3.5-5.0); Alkaline Phosphatase 77 U/L (39-117); Anion Gap 18 (12-20); Aspartate Amino Transferase 38 U/L (5-37); Bilirubin Direct < 0.2 mg/dL (0.0-0.5); Bilirubin Total 0.2 mg/dL (0.0-1.0); Blood Urea Nitrogen 6 mg/dL (9-16); Carbon Dioxide 25 mmol/L (22-29); Chloride 108 mmol/L (96-108); Creatinine Clr Calc Pharmacy 123.9; Estimated Glomerular Filt Rate > 60; Glucose Random 102 mg/dL (60-115); Lipase 55 U/L (8-78); Magnesium 2.3 mg/dL (1.6-2.6); Potassium 3.7 mmol/L (3.3-5.1); Sodium 147 mmol/L (135-145); Total Protein 7.4 g/dL (6.5-8.0)
[2023-10-30 08:00] VITALS: BP 105/53; PULSE 92; TEMP 36.6; O2SAT 96
[2023-10-30 08:50] VITALS: BP 105/53; PULSE 92; RESP 16; TEMP 36.6; O2SAT 96
== END 2023-10-30 09:29 | disposition home or self-care (01) ==
PROVIDERS: Emergency Provider Emergency Medicine
DX: F10.90 Alcohol use, unspecified, uncomplicated (principal); B34.9 Viral infection, unspecified; R11.2 Nausea with vomiting, unspecified; Z03.818 Encounter for observation for suspected exposure to other biological agents ruled out
CPT/HCPCS: 0241U; 36415; 80048; 80076; 83690; 83735; 85025; 87651; 96361; 96374; 96375; 99284; J2060; J2405; J3411

== ENCOUNTER 2024-01-15 23:52 | Emergency (ER) | payer MEDICAID, SELFPAY ==
--- NOTE | ~2024-01-15 | XR_ITS ---
EXAMINATION: XR HAND, LEFT CLINICAL INFORMATION: Hand pain after falling down steps COMPARISON: None available. TECHNIQUE: PA, lateral, and oblique views of the left hand. FINDINGS: The bones and soft tissues are normal. No fracture. Alignment is anatomic. Joint spaces are maintained. No erosions or soft tissue calcifications. XR/XR hand LT 2V IMPRESSION: Normal left hand.
[2024-01-15 23:56] VITALS: BP 142/92; PULSE 102; RESP 18; TEMP 36.3; O2SAT 96; BMI 29.3
--- NOTE | 2024-01-16 00:08 | ED.EXTPRO ---
HPI - Extremity Problem General Chief complaint: Extremity Injury, Upper Stated complaint: left hand pain and swelling Time Seen by Provider: 01/16/24 00:05 Source: patient Mode of arrival: ambulatory Limitations: no limitations History of Present Illness HPI Narrative: Patient is a 23-year-old male who presents emergency department for evaluation. He states he is right-hand dominant, approximately 2 weeks ago nearly tripped down the stairs he reached out with his left hand to catch himself reporting that his fingers hyperextended backwards. He states that he had a large bruise to the palm of his hand which has since resolved. He states he still has pain in the hand and that his hand feels swollen. He states it is difficult to make a fist due to his pain. He took Tylenol and ibuprofen on a single occasion and states there was no change so he stopped taking it. He denies any numbness or tingling. Related Data Previous Rx's ?Medication ?Instructions ?Recorded chlordiazepoxide HCl 25 mg capsule 25 mg PO Q3H PRN alcohol 10/30/23 withdrawal 12 doses #12 caps ondansetron 4 mg disintegrating 4 mg PO Q8H PRN nausea and 10/30/23 tablet vomiting #20 tabs Allergies Allergy/AdvReac Type Severity Reaction Status Date / Time No Known Allergies Allergy Verified 01/15/24 23:58 [No Known Allergies*] Review of Systems Review of Systems: Yes all other systems are reviewed and are negative PMFSH Past Medical History Attestation statement: The following information was validated with the patient. Source: old records reviewed Medical History Alcohol withdrawal seizure Alcohol use disorder Family History Family History Other Family history non-contributory Social History Social History Household Members: Other Housing: Other Housing Other:: stays with girlfriend sometimes and grandmother sometimes Do you presently have visiting nurse or other home services: No Alcohol intake: current Alcohol intake frequency: 0-2 drinks per day Alcohol type: hard liquor Patient Tobacco Use Status: Current everyday Tobacco user Cigarette Packs Per Day: 1 Cigarettes Per Day: 20.0 Second Hand Smoke Exposure: Yes Substance Use Type: Crack/Cocaine Advance Directives: No Advance Directives Information Provided: Yes service: No Current occupational status: unemployed Physical Exam Vital Signs: Vital Signs: Last Vital Signs Temp 97.4 F 01/15/24 23:56 Pulse 102 H 01/15/24 23:56 Resp 18 01/15/24 23:56 BP 142/92 H 01/15/24 23:56 Pulse Ox 96 01/15/24 23:56 O2 Del Method Room Air 01/15/24 23:56 BMI result Body Mass Index 29.3 Appearance: Alert.?Oriented to person, place and time. No acute distress.?Normal affect. CVS: Heart sounds normal. Normal heart rate and rhythm.? Pulses normal.?? Respiratory: No respiratory distress.? Lung sounds clear to auscultation bilaterally?? Skin: Skin warm and dry.? Normal skin color.? Extremities: No extremity edema.? 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 2+ radial pulse. No obvious edema, full range of motion to the wrist, able to adduct fingers to thumb. No snuffbox tenderness. Neuro: Moves all extremities spontaneously. Sensation intact bilaterally. Ambulates with normal steady gait. Medications Administered Discontinued Medications Generic Name Dose Route Start Last Admin Trade Name Freq PRN Reason Stop Dose Admin Ibuprofen 600 mg 01/16/24 00:12 01/16/24 00:47 Ibuprofen 600 Mg Tablet PO 01/16/24 00:13 600 mg ONCE ONE Administration Medical Decision Making Medical Decision Making [facility] Narrative: Patient is a 23-year-old male who presents emergency department for evaluation of traumatic left hand pain as per HPI. Overall appears well, no obvious deformity, extremity is neurovascularly intact distally. XR was obtained to evaluate for acute fracture/dislocation and reveals no acute pathology. At this time feel that he is stable for discharge home, advised consistent use of ibuprofen over the next few days, rest, avoidance of overuse, and follow-up with primary care doctor. Differential Diagnosis Differential Diagnoses: The differential diagnosis associated with the presentation includes (See narrative above) Independent Interpretation I performed an independent interpretation of an: Plain X-Ray (No acute fracture) Radiology Impression Discussion of test interpretation with radiology: I have reviewed the radiologist's reading. Radiologist Impression: XR/XR hand LT 2V IMPRESSION: Normal left hand. Prescription Management I considered prescription management with: Pain Medication (Acetaminophen/ibuprofen) Discharge Plan Discharge Clinical Impression: Hand sprain Qualifiers: Encounter type: initial encounter Laterality: left Qualified Code(s): S63.92XA - Sprain of unspecified part of left wrist and hand, initial encounter Patient Disposition: Home, Self-Care Instructions: Sprain (ED) Additional Instructions: X-ray does not show any evidence of broken bones. You can take ibuprofen 200 mg, 3 tablets (600mg) every 6-8 hours as needed for pain, in addition to Tylenol 500 mg, 2 tablets (1,000mg) every 4-6 hours as needed for pain, but not to exceed 3 doses daily (3,000mg).? Prescriptions: No Action ondansetron 4 mg tablet,disintegrating 4 mg PO Q8H PRN (Reason: nausea and vomiting) Qty: 20 0RF chlordiazepoxide HCl 25 mg capsule 25 mg PO Q3H PRN (Reason: alcohol withdrawal) Qty: 12 0RF Rx Instructions: until symptoms controlled Print Language: Nepali
[2024-01-16] MEDS: Ibuprofen 600 MG TABLET PO (00:47)
[2024-01-16 02:35] VITALS: BP 134/78; PULSE 88; RESP 18; TEMP 36.2; O2SAT 99
== END 2024-01-16 02:10 | disposition home or self-care (01) ==
PROVIDERS: Emergency Provider Emergency Medicine
DX: S63.92XA Sprain of unspecified part of left wrist and hand, initial encounter (principal); W18.43XA Slipping, tripping and stumbling without falling due to stepping from one level to another, initial encounter; F17.210 Nicotine dependence, cigarettes, uncomplicated; Y93.89 Activity, other specified; Y92.9 Unspecified place or not applicable; Y99.9 Unspecified external cause status
CPT/HCPCS: 73120; 99283; 99284

== ENCOUNTER 2024-02-24 22:52 | Emergency (ER) | payer MEDICAID, SELFPAY ==
--- NOTE | ~2024-02-24 | CT_ITS ---
EXAMINATION: CT CERVICAL SPINE WITHOUT IV CONTRAST, CT HEAD WITHOUT IV CONTRAST INDICATION INFORMATION: ETOH COMPARISON: None TECHNIQUE: Separate noncontrast CT examinations of the head and cervical spine were performed. Coronal and sagittal images were created for each examination at the technologist workstation. This CT examination was performed using dose optimization techniques as appropriate, variously including the following: *Automated exposure control *Adjustment of mA and/or kV according to patient size (this includes techniques or standardized protocols for targeted exams where dose is matched to indication/reason for exam; i.e. extremities or head) *Use of iterative reconstruction technique DLP: 763 mGy-cm (Noncon Head) and 443 mGy-cm (noncontrast cervical spine) FINDINGS: Head: No acute osseous or soft tissue abnormality. The mastoids are clear. Mild ethmoid sinus mucosal thickening. There is no evidence of acute intracranial hemorrhage or territorial infarction. No abnormal mass effect or midline shift is seen. [place] to white matter differentiation is well preserved. No extra-axial fluid collections are identified. No hydrocephalus. No significant volume loss. There is no abnormal attenuation within the brain parenchyma. Cervical spine: There is no evidence of acute cervical spine fracture. Vertebral bodies remain normal in height. Cervical straightening. Leftward curvature of the cervical spine which may be related to head positioning. No significant spondylolisthesis. Disc space heights are maintained. No pre- or paravertebral soft tissue abnormality is identified. Visualized portions of the lung apices are unremarkable. The thyroid gland is unremarkable. CT/CT cervical spine wo IV con IMPRESSION: 1. No acute intracranial abnormality. 2. No cervical spine fracture or traumatic malalignment. Electronically signed by: Kiran Kyle MD 02/25/2024 12:32 AM EDT
--- NOTE | ~2024-02-24 | CT_ITS ---
EXAMINATION: CT CERVICAL SPINE WITHOUT IV CONTRAST, CT HEAD WITHOUT IV CONTRAST INDICATION INFORMATION: ETOH COMPARISON: None TECHNIQUE: Separate noncontrast CT examinations of the head and cervical spine were performed. Coronal and sagittal images were created for each examination at the technologist workstation. This CT examination was performed using dose optimization techniques as appropriate, variously including the following: *Automated exposure control *Adjustment of mA and/or kV according to patient size (this includes techniques or standardized protocols for targeted exams where dose is matched to indication/reason for exam; i.e. extremities or head) *Use of iterative reconstruction technique DLP: 763 mGy-cm (Noncon Head) and 443 mGy-cm (noncontrast cervical spine) FINDINGS: Head: No acute osseous or soft tissue abnormality. The mastoids are clear. Mild ethmoid sinus mucosal thickening. There is no evidence of acute intracranial hemorrhage or territorial infarction. No abnormal mass effect or midline shift is seen. Avalos to white matter differentiation is well preserved. No extra-axial fluid collections are identified. No hydrocephalus. No significant volume loss. There is no abnormal attenuation within the brain parenchyma. Cervical spine: There is no evidence of acute cervical spine fracture. Vertebral bodies remain normal in height. Cervical straightening. Leftward curvature of the cervical spine which may be related to head positioning. No significant spondylolisthesis. Disc space heights are maintained. No pre- or paravertebral soft tissue abnormality is identified. Visualized portions of the lung apices are unremarkable. The thyroid gland is unremarkable. CT/CT head/brain wo IV con IMPRESSION: 1. No acute intracranial abnormality. 2. No cervical spine fracture or traumatic malalignment. Electronically signed by: Kiran Kyle MD 02/25/2024 12:32 AM EDT
[2024-02-24 23:01] VITALS: BP 123/79; PULSE 102; O2SAT 98
[2024-02-24 23:09] VITALS: BMI 26.5
[2024-02-24 23:14] VITALS: BP 148/94; PULSE 108; RESP 18; TEMP 36.7; O2SAT 98
--- NOTE | 2024-02-24 23:19 | ED_ITS ---
HPI - Alcohol General Chief Complaint: ETOH/Substance Use Stated Complaint: ETOH PER EMS Time Seen by Provider: 02/24/24 22:57 Source: patient and EMS Mode of arrival: EMS Limitations: altered mental status (Acute alcohol intoxication) History of Present Illness HPI narrative: Patient is a 23-year-old male who presents emergency department via EMS. Patient was found lying on the ground on the side of the road passed out by police department. Aroused to their stimuli. Appearing acutely intoxicated, admitted EtOH consumption denies drug usage. Offers no physical complaints at this time. On initial evaluation he is requesting to leave, he has no one to come and get him at this time, he is noted to have dirt on his shirt and along the right side of his head. He denies any headache. He has a slightly unsteady gait. Related Data Previous Rx's ?Medication ?Instructions ?Recorded chlordiazepoxide HCl 25 mg capsule 25 mg PO Q3H PRN alcohol 10/30/23 withdrawal 12 doses #12 caps ondansetron 4 mg disintegrating 4 mg PO Q8H PRN nausea and 10/30/23 tablet vomiting #20 tabs ibuprofen 600 mg tablet 600 mg PO Q6H PRN pain #14 tabs 01/16/24 Allergies Allergy/AdvReac Type Severity Reaction Status Date / Time No Known Allergies Allergy Verified 02/24/24 23:10 [No Known Allergies*] Review of Systems Review of Systems: Yes all other systems are reviewed and are negative [facility] Past Medical History Attestation statement: The following information was validated with the patient. Source: old records reviewed Medical History Alcohol withdrawal seizure Alcohol use disorder Family History Family History Other Family history non-contributory Social History Social History Household Members: Other Housing: Other Housing Other:: stays with girlfriend sometimes and grandmother sometimes Do you presently have visiting nurse or other home services: No Unable to assess alcohol history related to: Unknown Alcohol intake: current Alcohol intake frequency: 0-2 drinks per day Alcohol type: hard liquor Patient Tobacco Use Status: Current everyday Tobacco user Cigarette Packs Per Day: 1 Cigarettes Per Day: 20.0 Second Hand Smoke Exposure: Yes Use of substances other than those prescribed or required for medical reasons: Unknown Substance Use Type: Crack/Cocaine Advance Directives: No Advance Directives Information Provided: No Do you have a plan to hurt others: No Plan service: No Current occupational status: unemployed Physical Exam ED Vital Signs: Vital Signs - 24 hr 02/24/24 23:14 Temperature 98.1 F Pulse Rate 108 H Respiratory Rate 18 Blood Pressure 148/94 H Pulse Oximetry 98 Oxygen Delivery Method Room Air BMI result Body Mass Index 26.5 Appearance: Alert.?Oriented to person and place. Acutely intoxicated. Eyes: Pupils equal, round and reactive to light.? Neck: Normal inspection.? Neck supple.?? CVS: Heart sounds normal. Normal heart rate and rhythm.? Pulses normal.?? Respiratory: No respiratory distress.? Lung sounds clear to auscultation bilater ally?? Abdomen: Soft and non-tender. Normoactive bowel sounds. Skin: Skin warm and dry.? Normal skin color.? Extremities: No lower extremity edema.? Neuro: Moves all extremities spontaneously. Sensation intact bilaterally. No focal neuro deficits. Ambulates with unsteady gait Course Reevaluation(s) Reevaluation #1: CT head and cervical spine preliminary reviewed by my attending Dr. Lopez, without acute concerns. Patient is agitated and requesting to leave, doctor's ED advised nursing staff and security that he may be escorted out of the emergency department Time: 23:22 Medical Decision Making Medical Decision Making MDM Narrative: Patient is a 23-year-old male past medical history of alcohol use disorder, alcohol withdrawal seizure presenting to emergency department via EMS after found lying on the ground asleep by PD. Given unknown etiology as to how he got ground whether this was due to a fall, CT of the head and cervical spine obtained to exclude fracture, subluxation, ICH, SDH. Differential Diagnosis Differential Diagnoses: The differential diagnosis associated with the presentation includes (Acute alcoholic intoxication, fall with subsequent head injury, ICH, fracture) Admission/Observation Consideration of admission/observation: Escalation of care including admission/observation considered (See narrative above) Independent Interpretation I performed an independent interpretation of an: CT Scan (No ICH) Radiology Impression Discussion of test interpretation with radiology: I have reviewed the radiologist's reading. Radiologist Impression: CT/CT head/brain wo IV con IMPRESSION: 1. No acute intracranial abnormality. 2. No cervical spine fracture or traumatic malalignment. Independent Historian Clinical information obtained from an independent historian. History obtained from or confirmed by: EMS External Record Review External record reviewed: Outpatient record Social Determinants Patient?s care significantly limited by Social Determinants of Health including: Alcoholism and drug addiction in family Discharge Plan Discharge Clinical Impression: Alcohol intoxication Patient Disposition: Left W/O Completing Treatment Prescriptions: No Action ibuprofen 600 mg tablet 600 mg PO Q6H PRN (Reason: pain) Qty: 14 0RF ondansetron 4 mg tablet,disintegrating 4 mg PO Q8H PRN (Reason: nausea and vomiting) Qty: 20 0RF chlordiazepoxide HCl 25 mg capsule 25 mg PO Q3H PRN (Reason: alcohol withdrawal) Qty: 12 0RF Rx Instructions: until symptoms controlled Discharge Date/Time: 02/24/24 23:32
--- NOTE | 2024-02-24 23:19 | PC.NURSE ---
pt agreeable to do Head CT scan. ambulates into room with steady gait.
--- NOTE | 2024-02-24 23:22 | PC.NURSE ---
MD Lopez reviewed CT scans and said pt is safe to leave . Pt ambulated out of tx room escorted by security.
== END 2024-02-24 23:32 | disposition left against medical advice (07) ==
PROVIDERS: Emergency Provider Internal Medicine
DX: F10.129 Alcohol abuse with intoxication, unspecified (principal); M54.2 Cervicalgia; R51.9 Headache, unspecified; F17.210 Nicotine dependence, cigarettes, uncomplicated; Y90.0 Blood alcohol level of less than 20 mg/100 ml
CPT/HCPCS: 70450; 72125; 99284

== ENCOUNTER 2024-03-25 15:23 | Outpatient (REF) | payer MEDICAID, SELFPAY ==
[2024-03-25 16:27] LABS: Alanine Aminotransferase 24 U/L (0-40); Albumin Level 4.5 g/dL (3.5-5.0); Alkaline Phosphatase 97 U/L (39-117); Anion Gap 15 (12-20); Aspartate Amino Transferase 24 U/L (5-37); Bilirubin Direct 0.1 mg/dL (0.0-0.5); Bilirubin Total 0.3 mg/dL (0.0-1.0); Blood Urea Nitrogen 6 mg/dL (9-16); Calcium 10.1 mg/dL (8.4-10.2); Carbon Dioxide 26 mmol/L (22-29); Chloride 100 mmol/L (96-108); Estimated Glomerular Filt Rate > 60; Glucose Random 107 mg/dL (60-115); Potassium 3.5 mmol/L (3.3-5.1); Sodium 137 mmol/L (135-145); Total Protein 8.1 g/dL (6.5-8.0)
[2024-03-26 04:20] LABS: Syphilis Screen Nonreactive (Nonreactive)
[2024-03-26 04:31] LABS: HBS Num1 2.06 mIU/mL (0-7.99); HBc Num1 0.22 S/CO (0.00-0.79); HBsAGNum1 0.35 S/CO (0.00-0.99); HIV AB/AG Nonreactive (Nonreactive); HIV Num 1 0.09 S/CO (0.00-0.99); Hepatitis B Core Antibody Nonreactive (Nonreactive); Hepatitis B Surface Antigen Negative (Negative); ~Hepatitis B Surface Antibody NONREACTIVE (Nonreactive); ~Hepatitis C Antibody Nonreactive (Nonreactive)
[2024-03-26 04:32] LABS: Hepatitis A Antibody IgG REACTIVE (Nonreactive); ~Hepatitis A Antibody IgG 6.02 S/CO (0.00-0.99)
[2024-03-28 17:39] LABS: TS Negative Control Passed; TS Panel A 0; TS Panel B 0; TS Positive Control Passed; TSpotTB Negative (Negative)
== END 2024-03-25 15:24 | disposition home or self-care (01) ==
LOC: HO.HHCL 15:23
PROVIDERS: Visit Provider Family Medicine
DX: F10.20 Alcohol dependence, uncomplicated (principal)
CPT/HCPCS: 36415; 80048; 80076; 86481; 86704; 86706; 86708; 86780; 86803; 87340; 87389

== ENCOUNTER 2024-07-30 23:40 | Emergency (ER) | payer MEDICAID, SELFPAY ==
[2024-07-30 23:44] VITALS: BP 147/87; PULSE 119; RESP 18; TEMP 36.7; O2SAT 96; BMI 25.7
--- NOTE | 2024-07-30 23:49 | ECG_ITS ---
Test Reason : CHEST PAIN Blood Pressure : */* mmHG Vent. Rate : 109 BPM Atrial Rate : 109 BPM P-R Int : 178 ms QRS Dur : 92 ms QT Int : 324 ms P-R-T Axes : 54 49 27 degrees QTcB Int : 436 ms Sinus tachycardia Otherwise normal ECG When compared with ECG of 28-Apr-2021 23:57, No significant change was found Referred By: Generic ED Physician Electronically Signed By: VIKAS DHALIWAL MD
[2024-07-31 00:15] LABS: MANUAL DIFF FLAG NO
[2024-07-31 00:16] LABS: Basophils Absolute Auto 0.1 X10*3/uL (0.0-0.2); Basophils Percent Auto 0.9 % (0-2); Eosinophils Percent Auto 0.4 % (0-4); Hematocrit 48.4 % (42.0-52.0); Imm Gran Abs Auto 0.01 X10*3/uL (0.00-0.03); Imm Gran Pct Auto 0.2 % (0.0-0.4); Lymphocytes Absolute Auto 2.5 X10*3/uL (1.2-4.9); Lymphocytes Percent Auto 44.5 % (20-40); Mean Corpuscular HGB Conc 35.1 g/dl (31.0-36.0); Mean Corpuscular Hemoglobin 32.4 pg (27.0-33.0); Mean Corpuscular Volume 92.2 fL (80.0-98.0); Mean Platelet Volume 9.7 fL (9.4-12.4); Monocytes Absolute Auto 0.3 X10*3/uL (0.1-1.2); Monocytes Percent Auto 4.6 % (2-11); Neutrophils Absolute Auto 2.8 x10*3/uL (2.0-8.3); Neutrophils Percent Auto 49.4 % (45-73); Platelet Count 279 X10*3/uL (160-400); Red Blood Count 5.25 X10*6/uL (4.60-5.80); Red Cell Distribution Width 14.4 % (11.0-16.0); White Blood Count 5.6 X10*3/uL (4.8-10.8)
[2024-07-31 00:28] LABS: Ethanol 472 mg/dL
[2024-07-31 00:29] LABS: Anion Gap 20 (12-20); Blood Urea Nitrogen 6 mg/dL (9-16); Calcium 8.7 mg/dL (8.4-10.2); Carbon Dioxide 22 mmol/L (22-29); Chloride 104 mmol/L (96-108); Creatinine Clr Calc Pharmacy 138.2; Estimated Glomerular Filt Rate > 60; Glucose Random 150 mg/dL (60-115); Potassium 3.1 mmol/L (3.3-5.1); Sodium 143 mmol/L (135-145)
[2024-07-31 00:30] VITALS: BP 165/86; PULSE 107; RESP 20; TEMP 36.3; O2SAT 98
[2024-07-31 00:37] LABS: Troponin-I High Sensitivity 3.5 ng/L (<3.5-35.0)
--- NOTE | 2024-07-31 01:07 | ED_ITS ---
HPI - Chest Pain General Chief Complaint: Chest Pain Stated Complaint: unwell Time Seen by Provider: 07/31/24 01:07 History of Present Illness ED Provider: Albert ERICKSON narrative: The patient is a 23-year-old male who arrived in the emergency room by ambulance. He apparently had had some palpitations in his heart that he found very unpleasant. He admitted to alcohol use. Describes himself as a daily drinker. After waiting sometime in the emergency room he became very frustrated with waiting and insisted that he be allowed to leave. He was feeling better. He denies suicidality or homicidality. Related Data Previous Rx's ?Medication ?Instructions ?Recorded chlordiazepoxide HCl 25 mg capsule 25 mg PO Q3H PRN alcohol 10/30/23 withdrawal 12 doses #12 caps ondansetron 4 mg disintegrating 4 mg PO Q8H PRN nausea and 10/30/23 tablet vomiting #20 tabs ibuprofen 600 mg tablet 600 mg PO Q6H PRN pain #14 tabs 01/16/24 Allergies Allergy/AdvReac Type Severity Reaction Status Date / Time No Known Allergies Allergy Verified 07/30/24 23:46 [No Known Allergies*] Review of Systems 2 Review of Systems: Yes all other systems are reviewed and are negative [facility] Past Medical History Medical History Alcohol withdrawal seizure Alcohol use disorder Family History Family History Other Family history non-contributory Social History Social History Household Members: Other Housing: Other Housing Other:: stays with girlfriend sometimes and grandmother sometimes Do you presently have visiting nurse or other home services: No Unable to assess alcohol history related to: Unknown Alcohol intake: current Alcohol intake frequency: 3 or more drinks per day Alcohol type: hard liquor Patient Tobacco Use Status: Current everyday Tobacco user Cigarette Packs Per Day: 1 Cigarettes Per Day: 20.0 Smoked in Last 30 Days: No Second Hand Smoke Exposure: Yes Use of substances other than those prescribed or required for medical reasons: No Substance Use Type: Crack/Cocaine Advance Directives: No Advance Directives Information Provided: Yes Do you have a plan to hurt others: No Plan service: No Current occupational status: unemployed Physical Exam 2 Vital Signs: Vital Signs: Last Vital Signs Temp 97.4 F 07/31/24 01:17 Pulse 107 H 07/31/24 01:17 Resp 20 07/31/24 01:17 BP 165/86 H 07/31/24 01:17 Pulse Ox 98 07/31/24 01:17 O2 Del Method Room Air 07/31/24 01:17 BMI result Body Mass Index 25.7 Const: Other: The patient was awake and alert. His demeanor suggested that he was intoxicated but he did not seem unsteady on his feet and he was not grossly slurring his words. Does not appear acutely ill otherwise. HEENT: Other: Face is symmetrical. Mucous membranes moist. Eyes: General: appearance normal, both eyes and all related structures C onjunctivae: conjunctivae normal Sclerae: sclerae normal Pupils: Equal, round and reactive pupils present EOM: EOMs intact bilaterally Neck: Neck: Yes full ROM Resp: Effort & Inspection: normal respiratory effort Auscultation: clear to auscultation bilaterally Cardio: Rate: regular rate Rhythm: regular rhythm Heart sounds: S1 normal heart sound present and S2 normal heart sound present GI: Other: The abdomen was soft and did not seem tender. Skin: Other: Skin is pale and dry Neuro: Other: The patient is awake and alert. He seemed intoxicated and often perseverated with the same questions but he was steady on his feet and was not significantly slurring his words. Cranial nerves are intact. He moves his extremities symmetrically with normal strength. His gait is reasonably steady. Cranial nerves: Yes Equal, round and reactive pupils present Extrem: Other: No signs of injury to the extremities. Medical Decision Making Medical Decision Making MDM Narrative: The patient is a 23-year-old male who came to the hospital by ambulance after allegedly reporting chest pain and palpitations. I was asked to see him because he was insisting on being discharged. He told me that he had had some pain in his chest or abdomen that had resolved and he no longer wanted to be in the hospital in part because he was being kept on a hallway stretcher. I did my best to explain the fatigue we has been very busy all night and did not have any room other than the stretcher in the hallway. I offered him medication to try to help with whatever symptoms he might be having but he ultimately would not cooperate and I ultimately felt he could be discharged. I suspect he has a chronic alcoholic. He says he lives very close to the hospital and plans on walking home. Given that he seems safe on his feet think discharging him is not an unreasonable. The patient has had several previous emergency physicians for alcohol intoxication and he has had quite high alcohol levels in the past previously. Lab Data 07/31/24 00:09 07/31/24 00:09 Labs: Lab Results 07/31/24 Range/Units 00:09 WBC 5.6 (4.8-10.8) X10*3/uL RBC 5.25 (4.60-5.80) X10*6/uL Hgb 17.0 (14.0-18.0) g/dl Hct 48.4 (42.0-52.0) % MCV 92.2 (80.0-98.0) fL MCH 32.4 (27.0-33.0) pg MCHC 35.1 (31.0-36.0) g/dl RDW 14.4 (11.0-16.0) % Plt Count 279 (160-400) X10*3/uL MPV 9.7 (9.4-12.4) fL Immature Gran % (Auto) 0.2 (0.0-0.4) % Neut % (Auto) 49.4 (45-73) % Lymph % (Auto) 44.5 H (20-40) % Jones % (Auto) 4.6 (2-11) % Eos % (Auto) 0.4 (0-4) % Baso % (Auto) 0.9 (0-2) % Lymph # (Auto) 2.5 (1.2-4.9) X10*3/uL Jones # (Auto) 0.3 (0.1-1.2) X10*3/uL Eos # (Auto) 0.0 (0.0-0.4) X10*3/uL Baso # (Auto) 0.1 (0.0-0.2) X10*3/uL Abs Immat Gran (auto) 0.01 (0.00-0.03) X10*3/uL Absolute Neuts (auto) 2.8 (2.0-8.3) x10*3/uL Absolute Nucleated RBC 0.000 (0.0-0.012) X10*3/uL Nucleated RBC % (auto) 0.0 (0.0-0.2) /100WBC Sodium 143 (135-145) mmol/L Potassium 3.1 L (3.3-5.1) mmol/L Chloride 104 (96-108) mmol/L Carbon Dioxide 22 (22-29) mmol/L Anion Gap 20 (12-20) BUN 6 L (9-16) mg/dL Creatinine 0.95 (0.5-1.4) mg/dL Estim Creat Clear Calc 138.2 Estimated GFR > 60 Random Glucose 150 H (60-115) mg/dL Calcium 8.7 D (8.4-10.2) mg/dL Troponin I High Sens 3.5 (<3.5-35.0) ng/L Ethyl Alcohol 472 H* mg/dL Discharge Plan Discharge Clinical Impression: Alcohol intoxication Patient Disposition: Home, Self-Care Additional Instructions: Please be very careful with alcohol in the future. Return to the emergency room if worse Prescriptions: No Action ibuprofen 600 mg tablet 600 mg PO Q6H PRN (Reason: pain) Qty: 14 0RF ondansetron 4 mg tablet,disintegrating 4 mg PO Q8H PRN (Reason: nausea and vomiting) Qty: 20 0RF chlordiazepoxide HCl 25 mg capsule 25 mg PO Q3H PRN (Reason: alcohol withdrawal) Qty: 12 0RF Rx Instructions: until symptoms controlled Interventions: ED Discharge Assessment Last Done: 07/31/24 01:17 Discharge Date/Time: 07/31/24 01:43 Print Language: Syriac
--- NOTE | 2024-07-31 01:09 | PC.NURSE ---
patient becoming verbally aggressive with staff. Security called for safety of staff and patient
[2024-07-31 01:17] VITALS: BP 165/86; PULSE 107; RESP 20; TEMP 36.3; O2SAT 98
--- NOTE | 2024-07-31 01:24 | PC.NURSE ---
patient discharged with steady gait, alert and oriented.
== END 2024-07-31 01:43 | disposition home or self-care (01) ==
LOC: HO.ED 07-31 01:38
PROVIDERS: Emergency Provider Emergency Medicine
DX: F10.129 Alcohol abuse with intoxication, unspecified (principal); R07.89 Other chest pain; Y90.8 Blood alcohol level of 240 mg/100 ml or more; Z51.81 Encounter for therapeutic drug level monitoring; Z03.818 Encounter for observation for suspected exposure to other biological agents ruled out; Z79.899 Other long term (current) drug therapy
CPT/HCPCS: 36415; 80048; 80307; 84484; 85025; 93005; 99284; 99285

== ENCOUNTER → 2024-07-30 23:49 | Outpatient (BNV) | payer MEDICAID, SELFPAY | PROVIDERS: Emergency Provider Emergency Medicine; Visit Provider Internal Medicine Cardiovascular Disease | DX: R00.0 Tachycardia, unspecified (principal) | CPT/HCPCS: 93010 ==

== ENCOUNTER 2025-06-02 12:54 | Outpatient (AMB) | payer MEDICAID, SELFPAY ==
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
[2025-06-02 13:18] VITALS: BP 126/70; PULSE 96; O2SAT 98; BMI 27.3
--- OUTSIDE RECORDS SUMMARY | 2025-06-02 16:58 | XMS_ITS | Clinical Summary ---
Author Organization [employer] Address [address] [place] [address] Care Team Providers Care Solutions Operator Name Role Phone Unavailable Primary Care Provider Unavailabl e Allergies No known active allergies Immunizations Immunization Administration Dates Next Due Influenza, IIV3, injectable 03/25/2013 Social History Tobacco Use Types Packs/Day Years Used Date Smoking Tobacco: Every Day Cigarettes Tobacco Cessation:Ready to Q uit: Not Asked; Counseling Given: Not Answered Alcohol Use Standard Drinks/Week Comments Yes 0 (1 standard drink = 0.6 oz pur e alcohol) Alcohol Answer Date Recorded Frequency of Alcohol Consumption Not on file 03/20/2024 Average Number of Drinks Not on file 024 Frequency of Binge Drinking Not on file 09/2023 Score 0 03/20/2024 Depression Answer Date Recorded Patient Health Questionnaire-9 Score 4 03/20/2024 Patient Health Questionnaire-9 Score 4 03/20/2024 Last PHQ-9: Questionnaire Data Not on file 1 Housing Stability Answer Date Recorded What is your housing situation today? I have jayesh kumar 03/20/[address] you li ve. Do you have problems with any of the following? None of the above 03/20/2024 Food Insecurity Answer Date Recorded Within the past 12 months, y ou worried that your food would run out before you got money to buy more: Never True 03/20/2024 Within the past 12 months,th e food you bought just didn't last and you didn't have enough money to get more: Never True 09/2023 Transportation Answer Date Recorded In the past 12 months, has l ack of transportation kept you from medical appts, meetings, work or from getting things needed for daily living? No 03/20/2024 Utilities Answer Date Recorded In the past 12 months, has t he electric, gas, oil or water company threatened to shut off services in your home? No 03/20/2024 Depression Answer Date Recorded Patient Health Questionnaire-2 Score 2 03/20/2024 Internet Access Answer Date Recorded Internet Access Q1 Yes 03/20/2024 Internet Access Q2 Not on file 03/20/2024 Sex and Gender Information Value Date Recorded Sex Assigned at Male 04/16/2022 10:15 AM EDT Legal Sex Male 10:15 AM EDT Gender Identity Male 03/18/2024 4:19 PM EDT Sexual Orientation Straight 03/18/2024 4: 19 PM EDT Last Filed Vital Signs Vital Sign Reading Time Taken Comments Blood Pressure 147/93 03/20/2024 2:17 PM EDT Pulse 76 03/20/2024 2:17 PM EDT Temperature 37.1 C (98.7 F) 03/20/2024 2:17 PM EDT Respiratory Rate 18 03/20/2024 2:17 PM EDT Oxygen Saturation - - Inhaled Oxygen Concentration - - Weight 95 kg (209 lb 8 oz) 03/20/2024 2:17 PM ED T Height - - Body Mass Index - - Plan of Treatment Health Maintenance Due Date Last Done Comments Disability Screening 1998 Alcohol/Substance Use Screening 2010 Tobacco Screening 2010 Family Planning (PISQ) 2013 HPV Vaccines (1 - Male 3-dos e series) 2013 DTaP/Tdap/Td Vaccines (1 - Tdap) 2017 Hepatitis B Vaccines (1 of 3 - 19+ 3-dose series) 2017 Pneumococcal Vaccine: Pediatrics (0 to 5 Years) and At-Risk Patients (6 to 49) Years (1 of 2 - PCV) 2017 COVID-19 Vaccine (1 - 2024-2 6 season) 2025 Influenza Vaccine (#1) 2025 03/25/2013 Depression Screening 03/20/2025 03/20/2024, 03/20/2024 SDOH Screening 03/20/2025 03/20/2024 Zoster Vaccines (1 of 2) 2048 RSV Patients and Patients Aged 60 years or older (1 - 1-dose 75+ series) 2073 HIV Screening Completed 03/25/2024 Hepatitis C Screening Completed 03/25/2024 HIB Vaccines Aged Out No longer eligi ble based on patient's age to complete this topic Hepatitis A Vaccines Aged Out No long er eligible based on patient's age to complete this topic IPV Vaccines Aged Out No longer eligi ble based on patient's age to complete this topic Meningococcal B Vaccine Aged Out No l onger eligible based on patient's age to complete this topic Meningococcal Vaccine Aged Out No cecilia tish eligible based on patient's age to complete this topic RSV under 20 months Aged Out No longe r eligible based on patient's age to complete this topic Rotavirus Vaccines Aged Out No longer eligible based on patient's age to complete this topic Procedures Procedure Name Priority Date/Time Associated Diagnosis Comments HEPATITIS C AB W/REFL TO HCV RNA, QN, PCR Routine 03/25/2024 3:25 PM EDT Severe alcohol use disorder (CMS/HCC) HIV 1/2 ANTIGEN/ANTIBODY, FOURTH GENERATION W/RFL Routine 03/25/2024 3:25 PM EDT Severe alcohol use disorder (CMS/HCC) from Last 3 Months or Most Recently Relevant to Health Maintenance Results * Hepatitis C Antibody with Reflex to HCV, RNA, Quantitative, Real-Time PCR (03/25/2024 3:25 PM EDT) Hepatitis C Antibody Nonreactive Nonreactive [facility] Comment:Antibodies to HCV no t detected; does not exclude early acuteHCV infection. Blood Venous blood specimen / Unknown 03/25/2024 3:25 PM EDT 03/25/2024 3:58 PM EDT us Chan Dasilva MD LAB BLOOD ORDERABLES Final Resul t [facility] [address] [place] [address] [phone] * HIV-1/2 Antigen and Antibodies, Fourth Generation, with Reflexes (03/25/2024 3:25 PM EDT) HIV AB/AG Nonreactive Nonreactive [facility] Comment:HIV-1 p24 Ag and/or HIV-1/HIV-2 Ab not detected.A test result that is nonreactive does not exclude thepossibility of exposure to or infection with HIV-1 and/orHIV-2. Nonreactive results in this assay for individualswith prior exposure to HIV-1 and/or HIV-2 may be due toantigen and antibody levels that are below the limit ofdetection of this assay.The [employer] HIV Ag/Ab Combo assay result andsupplemental assay results should be interpreted inconjunction with the patient's clinical presentation,history and other laboratory results. If the results areinconsistent with clinical evidence, additional testing issuggested to confirm the result. Blood Venous blood specimen / Unknown 03/25/2024 3:25 PM EDT 03/25/2024 3:58 PM EDT us Chan Dasilva MD LAB BLOOD ORDERABLES Final Resul t [facility] [address] [place] [phone] from Last 3 Months or Most Recently Relevant to Health Maintenance [place] [address] [place] [address] C3
== END 2025-06-02 13:52 | disposition home or self-care (01) ==
LOC: HO.HCC 12:54
PROVIDERS: Visit Provider Clinical Nurse Specialist Psychiatric/Mental Health
DX: F19.90 Other psychoactive substance use, unspecified, uncomplicated (principal); Z51.81 Encounter for therapeutic drug level monitoring
CPT/HCPCS: 99203

== ENCOUNTER → 2025-06-02 12:54 | Outpatient (BNVA) | payer MEDICAID, SELFPAY | PROVIDERS: Visit Provider Clinical Nurse Specialist Psychiatric/Mental Health | DX: F19.90 Other psychoactive substance use, unspecified, uncomplicated (principal); Z51.81 Encounter for therapeutic drug level monitoring; Z79.899 Other long term (current) drug therapy | CPT/HCPCS: 80307; 99212 ==